=== PATIENT | female | born 1975 | race Caucasian/White ===

== ENCOUNTER 2020-12-05 20:57 | Emergency (ER) | payer OTHER, MEDICAID, SELFPAY ==
[2020-12-05] VITALS (8 sets, daily range): BP systolic 105–165; BP diastolic 66–96; PULSE 83–113; RESP 12–25; TEMP 37.2; O2SAT 95–100
[2020-12-05] MEDS: EPINEPHrine HCL INJ 1 MG/ML AMPUL (21:18)
[2020-12-05] MEDS: FAMOTIDINE 20 MG/2 ML VIAL IV PUSH (21:31)
[2020-12-05] MEDS: methylPREDNISolone SOD SUCC 125 MG VIAL IV PUSH (21:31)
[2020-12-05] MEDS: ALBUTEROL SULFATE NEB 2.5 MG/0.5 ML INH INHALATION (21:32)
[2020-12-05] MEDS: diphenhydrAMINE HCl INJ 50 MG/ML VIAL IV PUSH (21:34)
--- NOTE | 2020-12-05 22:18 | ED.GENADULT ---
HPI - General Adult General Chief complaint: Allergic Reaction Stated complaint: SOB/N/V Time Seen by Provider: 12/05/20 21:11 History of Present Illness HPI narrative: Patient is a 45-year-old female presents the emergency department with chief complaint of possible allergic reaction. The patient states that she ate some bread and also had some CBD Gummies today and started feeling short of breath and had some wheezing. The patient reports that she think she is having allergic reaction but also states she feels rather anxious with this to. Patient states that she has been squeezing some patient denies fever denies chills. Patient reports that she is had no prior history of allergic reactions. Related Data Allergies Allergy/AdvReac Type Severity Reaction Status Date / Time codeine AdvReac VOMITING Verified 05/26/11 12:02 Review of Systems Review of Systems: A 10 system review of systems was completed on the patient and is negative except for what is stated in the HPI. Nursing and ancillary documentation was reviewed. Exam Narrative: GENERAL: Well-appearing, well-nourished, and in no acute distress. HEAD: Normocephalic, atraumatic. EYES: PERRLA and EOMI. ENT: Nares clear, no rhinorrhea or epistaxis. Mucous membranes moist. NECK: Supple. CHEST: Scattered wheezes bilaterally to auscultation. No respiratory distress. HEART: Regular rate and rhythm. No murmur heard. Normal peripheral pulses. ABDOMEN: Soft, nontender, nondistended, normal active bowel sounds. EXTREMITIES: Normal range of motion. No edema. SKIN: Warm, dry, no rash. NEURO: No focal deficits. Alert and oriented x3. PSYCH: Normal mood and affect. Course Vital Signs Vital signs: Vital Signs Temperature 37.2 C 12/05/20 21:12 Pulse Rate 113 H 12/05/20 21:12 Respiratory Rate 20 12/05/20 21:12 Blood Pressure 149/89 H 12/05/20 21:12 Pulse Oximetry 100 12/05/20 21:12 Temperature 37.2 C 12/05/20 21:12 Pulse Rate 85 12/05/20 23:30 Respiratory Rate 14 12/05/20 23:30 Blood Pressure 105/74 12/05/20 23:30 Pulse Oximetry 95 12/05/20 23:30 Medical Decision Making Vital Signs Vital Signs: Vital Signs Temperature 37.2 C 12/05/20 21:12 Pulse Rate 113 H 12/05/20 21:12 Respiratory Rate 20 12/05/20 21:12 Blood Pressure 149/89 H 12/05/20 21:12 Pulse Oximetry 100 12/05/20 21:12 Temperature 37.2 C 12/05/20 21:12 Pulse Rate 85 12/05/20 23:30 Respiratory Rate 14 12/05/20 23:30 Blood Pressure 105/74 12/05/20 23:30 Pulse Oximetry 95 12/05/20 23:30 Discharge Plan Discharge Clinical Impression: Allergic reaction Qualifiers: Encounter type: initial encounter Qualified Code(s): T78.40XA - Allergy, unspecified, initial encounter Patient Disposition: Home, Self-Care Condition: Stable Instructions: Antibiotic Form, General Allergic Reaction (ED) Prescriptions: New methylprednisolone [Medrol (Tavon)] 4 mg tablets,dose pack See Rx Instructions .ROUTE .COMPLEX Qty: 21 RF: 0 Follow-up/Referrals: PHYSICIAN NOT ON STAFF,NONSTAFF [Primary Care Provider] - Time of Disposition: 00:43
[2020-12-05] MEDS: LORazepam INJ (*CRX) 2 MG/ML VIAL 0.5 MG IV PUSH (22:19)
--- NOTE | 2020-12-05 23:27 | PC.NURSE ---
Attempt to update (Roland Mckeon [phone]) unsuccessful at this time.
[2020-12-06 01:38] VITALS: BP 125/75; PULSE 78; RESP 16; O2SAT 96
== END 2020-12-06 01:40 | disposition home or self-care (01) ==
PROVIDERS: Emergency Provider Emergency Medicine
DX: T78.40XA Allergy, unspecified, initial encounter (principal)
CPT/HCPCS: 94640; 96372; 96374; 96375; 99284; J0171; J1200; J2060; J2930

== ENCOUNTER 2021-10-21 16:59 | Emergency (ER) | payer MEDICAID, SELFPAY ==
--- NOTE | 2021-10-21 17:15 | ED.URI ---
HPI - URI/Sore Throat General Chief Complaint: Upper Respiratory Infection Stated Complaint: sorethroat/lt ear pain Time Seen by Provider: 10/21/21 17:15 Source: patient Mode of arrival: ambulatory Limitations: no limitations History of Present Illness HPI Narrative: Ms. Asif is a 46-year-old female patient presenting to the clinic today with complaints of sore throat and left ear pain. She reports it feels like there is some thing inside the left throat. She reports is painful to swallow. Symptoms have been ongoing for 2 to 3 days. She has taken 2 at home COVID test and they were negative. Also reports nasal congestion and sinus drainage MD elicited complaint: sore throat and nasal congestion Related Data Home Medications Medication Instructions Recorded Confirmed ALEXANDRA-COLACE 10/21/21 bupropion HCl 150 mg tablet,12 hr 150 mg PO DAILY 10/21/21 10/21/21 sustained-release omeprazole 10/21/21 sertraline 100 mg tablet 100 mg DAILY 10/21/21 10/21/21 Allergies Allergy/AdvReac Type Severity Reaction Status Date / Time dextromethorphan Allergy Swelling Verified 10/21/21 17:41 [From Mucinex DM] of Lip/Tongue/Throat guaifenesin [From Mucinex DM] Allergy Swelling Verified 10/21/21 17:41 of Lip/Tongue/Throat codeine AdvReac VOMITING Verified 05/26/11 12:02 Review of Systems Review of Systems: Pertinent positives per HPI. Patient denies any fever, chills, rash, headache, visual changes, dizziness, cough, shortness of breath, chest pain, palpitations, nausea, vomiting, diarrhea, constipation, abdominal pain, or any urinary issues. PMFSH Comments At the time of my signature, I reviewed and agree with the nursing past medical, surgical, social, and family history. There is no relevant family history pertinent to the patient complaint. Exam Narrative: General: Well-developed, well nourished, in no apparent distress Head: Normocephalic, atraumatic Eyes: Pupils equally round and reactive to light bilaterally, EOM intact, sclera and conjunctive clear, no discharge, lids normal Ears: TMs intact, mild bulging, and dull, canals clear,no drainage, grossly hearing normal. Nose: Nares patent, clear nasal discharge, no inflammation, no sinus tenderness. Mouth: Oral pharynx without lesions or masses, good dentition, MMM. Oropharynx red, postnasal drip Neck: Supple, trachea midline, no enlargement of anterior or posterior cervical nodes, no thyroid masses or goiter palpable. Cardio: Regular rate and rhythm, s1 and s2 normal, no murmur appreciated. Resp: Clear to auscultation bilaterally, no rhonchi, rales, wheezing or rubs Course Course Emergency Course: Portions of this record may have been created with voice recognition software. Level of Care: Express Care Visit Vital Signs Vital signs: Vital Signs Temperature 36.3 C L 10/21/21 17:21 Pulse Rate 96 10/21/21 17:21 Respiratory Rate 18 10/21/21 17:21 Blood Pressure 123/83 10/21/21 17:21 Pulse Oximetry 99 10/21/21 17:21 Oxygen Delivery Room Air 10/21/21 17:21 Temperature 36.3 C L 10/21/21 17:21 Pulse Rate 96 10/21/21 17:21 Respiratory Rate 18 10/21/21 17:21 Blood Pressure 123/83 10/21/21 17:21 Pulse Oximetry 99 10/21/21 17:21 Oxygen Delivery Room Air 10/21/21 17:21 Vital signs reviewed MDM - URI/Sore Throat MDM Narrative Medical decision making narrative: At the time of visit patient is resting comfortably on exam table. Strep screen was obtained and was negative in clinic. I suspect the patient has eustachian tube dysfunction with serous otitis media. She also has viral pharyngitis. Supportive measures were discussed with the patient she voiced understanding of discharge instructions and agrees to treatment plan. Prescription was sent for prednisone to her pharmacy Differential Diagnosis Differential diagnosis: Likely upper respiratory infection, otitis media, sinusitis, viral infection, bronchi
[2021-10-21 17:21] VITALS: BP 123/83; PULSE 96; RESP 18; TEMP 36.3; O2SAT 99
== END 2021-10-21 18:26 | disposition home or self-care (01) ==
PROVIDERS: Emergency Provider Nurse Practitioner Family
DX: H65.02 Acute serous otitis media, left ear (principal); J02.9 Acute pharyngitis, unspecified; H69.93 Unspecified Eustachian tube disorder, bilateral; K21.9 Gastro-esophageal reflux disease without esophagitis; F41.9 Anxiety disorder, unspecified; F32.A Depression, unspecified; F17.200 Nicotine dependence, unspecified, uncomplicated
CPT/HCPCS: 87081; 87880; 99213; G0463

== ENCOUNTER 2022-01-06 14:32 | Emergency (ER) | payer OTHER, SELFPAY ==
--- NOTE | 2022-01-06 14:36 | ED.EAR ---
HPI - Ear Problem General Stated complaint: insect in lt ear Time Seen by Provider: 01/06/22 14:36 Source: patient Mode of arrival: ambulatory Limitations: no limitations History of Present Illness HPI Narrative: Ms. Mckeon is a 46-year-old female patient presenting to clinic today with complaints of a possible insect in the left ear. She reports that insect got in her ear this morning. It may have been as stink bug. She used water and peroxide to flush her ear Related Data Home Medications Medication Instructions Recorded Confirmed bupropion HCl 150 mg tablet,12 hr 150 mg PO DAILY 10/21/21 10/21/21 sustained-release sertraline 100 mg tablet 100 mg DAILY 10/21/21 10/21/21 Allergies Allergy/AdvReac Type Severity Reaction Status Date / Time dextromethorphan Allergy Severe Swelling Verified 01/06/22 14:46 [From Mucinex DM] of Lip/Tongue/Throat guaifenesin [From Mucinex DM] Allergy Severe Swelling Verified 01/06/22 14:46 of Lip/Tongue/Throat codeine AdvReac Intermediate VOMITING Verified 01/06/22 14:46 Review of Systems Review of Systems: Pertinent positives per HPI. Patient denies any fever, chills, rash, headache, visual changes, dizziness, cough, runny nose, sore throat, shortness of breath, chest pain, palpitations, nausea, vomiting, diarrhea, constipation, abdominal pain, or any urinary issues. PMFSH Comments At the time of my signature, I reviewed and agree with the nursing past medical, surgical, social, and family history. There is no relevant family history pertinent to the patient complaint. Exam Narrative: General: Well-developed, well nourished, in no apparent distress Head: Normocephalic, atraumatic Eyes: Pupils equally round and reactive to light bilaterally, EOM intact, sclera and conjunctive clear, no discharge, lids normal Ears: TMs intact and clear, ear canals clear, no drainage, grossly hearing normal. Nose: Nares patent, no discharge, no inflammation, no sinus tenderness. Mouth: Oropharynx without lesions or masses, good dentition, MMM. Neck: Supple, trachea midline, no enlargement of anterior or posterior cervical nodes, no thyroid masses or goiter palpable. Cardio: Regular rate and rhythm, s1 and s2 normal, no murmur appreciated. Resp: Clear to auscultation bilaterally anteriorly and posteriorly, no rhonchi, rales, wheezing or rubs Course Course Emergency Course: Portions of this record may have been created with voice recognition software. Level of Care: Express Care Visit Vital Signs Vital signs: Vital signs reviewed Medical Decision Making MDM Narrative Medical decision making narrative: At the time of visit patient is resting comfortably on exam table. No insect was found upon a ear exam. I suspect that the patient may have flush this out earlier today. No sign of ear infection,ear canal infection, or trauma. Supportive measures were discussed with the patient and she voiced understanding of discharge instructions Differential Diagnosis Differential Diagnosis: Possible foreign body in the left ear canal, otalgia, left otitis media, eustachian tube dysfunction, left otitis externa Discharge Plan Discharge Clinical Impression: Acute otalgia, No foreign body found on evaluation Patient Disposition: Home, Self-Care Condition: Stable Instructions: Antibiotic Form, Earache (ED) Additional Instructions: No insect was found on ear exam today. May take Tylenol/Motrin as needed for pain Follow-up with your PCP as needed Prescriptions: No Action bupropion HCl 150 mg tablet sustained-release 12 hr 150 mg PO DAILY sertraline 100 mg tablet 100 mg DAILY ALEXANDRA-COLACE omeprazole prednisone 20 mg tablet 40 mg PO DAILY 5 Days Qty: 10 0RF Follow-up/Referrals: UNKNOWN,DOCTOR [Primary Care Provider] - Time of Disposition: 14:47 Quality NIHSS Nursing Documentation ED NIHSS nursing doc
[2022-01-06 14:43] VITALS: BP 139/93; PULSE 74; RESP 18; TEMP 36.1; O2SAT 99
== END 2022-01-06 14:50 | disposition home or self-care (01) ==
PROVIDERS: Emergency Provider Nurse Practitioner Family
DX: H92.02 Otalgia, left ear (principal); K21.9 Gastro-esophageal reflux disease without esophagitis; N80.9 Endometriosis, unspecified; F41.9 Anxiety disorder, unspecified; F32.A Depression, unspecified; F17.290 Nicotine dependence, other tobacco product, uncomplicated
CPT/HCPCS: 99211; G0463

== ENCOUNTER 2022-01-28 17:42 | Emergency (ER) | payer OTHER, SELFPAY ==
--- NOTE | ~2022-01-28 | XR_ITS ---
XR chest 2V DATE: 01/28/2022 18:20 INDICATION: Cough, chest pain for one day. Tobacco days ago smoker TECHNIQUE: 2 views COMPARISON: None FINDINGS: Normal heart size. No hilar or mediastinal enlargement. No pulmonary infiltrate or consolid ation, pleural effusion or pulmonary vascular congestion or pneumothorax. Included skeletal structures are unremarkable. IMPRESSION: No active cardiopulmonary disease Reviewed, dictated and finalized at location B. K LAYING MACHINE OPERATOR
--- NOTE | 2022-01-28 17:58 | ECG_ITS ---
Measurements Intervals [place] Rate: 82 P: 68 CT: 161 QRS: 68 QRSD: 94 T: 55 QT: 376 QTc: 441 Interpretive Statements SINUS RHYTHM NO PREVIOUS ECG AVAILABLE FOR COMPARISON Electronically Signed On 01-29-2022 14:50:10 GROUP FITNESS MANAGER by Gelacio Romero M.D.
[2022-01-28 18:01] VITALS: BP 141/88; PULSE 90; RESP 18; TEMP 36.6; O2SAT 98
--- NOTE | 2022-01-28 18:05 | ED.CHESTPAIN ---
HPI - Chest Pain General Chief Complaint: Chest Pain Stated Complaint: chest pain Time Seen by Provider: 01/28/22 18:05 Source: patient Mode of arrival: ambulatory Limitations: no limitations History of Present Illness HPI narrative: 46-year-old female presents with multiple complaints. Reports that she has been suffering from abdominal pain since her colonoscopy. Has been seen in the ER for this problem and has been told that she has inflammation. Has a follow-up appoint with her primary care physician tomorrow regarding abdominal pain. She also reports that she has had pain to bilateral ears, intermittent dizziness. also complaining of cough, congestion, body aches, fever, fatigue since yesterday. States that her kids have COVID and her has influenza. She did a COVID test prior to arrival that was negative. She denies shortness of breath. Today while at work she was experiencing Pain to bilateral shoulders radiating into chest when lifting boxes up onto a shelf. She is unsure if this is related to cough symptoms or her heart. Also reports history of anxiety. All systems reviewed and negative except as noted above. Related Data Home Medications Medication Instructions Recorded Confirmed bupropion HCl 150 mg tablet,12 hr 150 mg PO BID 10/21/21 01/28/22 sustained-release sertraline 100 mg tablet 100 mg DAILY 10/21/21 01/28/22 Allergies Allergy/AdvReac Type Severity Reaction Status Date / Time dextromethorphan Allergy Severe Swelling Verified 01/28/22 17:53 [From Mucinex DM] of Lip/Tongue/Throat guaifenesin [From Mucinex DM] Allergy Severe Swelling Verified 01/28/22 17:53 of Lip/Tongue/Throat codeine AdvReac Intermediate VOMITING Verified 01/28/22 17:53 Review of Systems Review of Systems: CONSTITUTIONAL: report fever, chills, or sweats. EYES: Denies visual changes, redness, or discharge. ENT: reports rhinorrhea, congestion, sore throat, and both ears CARDIOVASCULAR: reports chest pain. Denies palpitations, or edema. RESPIRATORY: reports cough. Deniesdyspnea. GASTROINTESTINAL: Denies abdominal pain, nausea, vomiting, or diarrhea. GENITOURINARY: Denies dysuria or hematuria. SKIN: Denies rash or itching. MUSCULOSKELETAL: Denies back pain, joint pain, or myalgia. NEUROLOGIC: Denies headache, numbness, or weakness. PSYCHIATRIC: Denies anxiety or depression. All other systems reviewed are negative, except as documented in HPI. PMFSH Comments At time of signature, agree with nursing past medical, surgical, social and family history. There is no relevant family history pertinent to the presenting complaint. Exam Narrative: GENERAL: This is a well-nourished, well-developed patient, in no apparent distress. HEAD: normocephalic, atraumatic. EYES: PERRL. Sclera clear/white. Vision is grossly intact. EARS: External ears normal, auditory canals clear and without drainage, fluid and erythema to both TMs. NOSE: External nose normal with no obvious nasal discharge, nares without redness, no rhinorrhea. THROAT: Mucous membranes moist, posterior pharynx clear. NECK: Neck supple, non-tender without lymphadenopathy, masses or thyromegaly. CARDIOVASCULAR: Regular rate and rhythm without murmurs, gallops, or rubs. RESPIRATORY: Coarse lung sounds to upper lung medina. SKIN: warm, Dry, intact with no suspicious lesions or rash, good texture and turgor. NEURO: awake, alert, and oriented to person, place and time. There were no obvious focal neurologic abnormalities. EXTREMITIES: No joint tenderness, effusion, or edema noted. Course Course Level of Care: Express Care Visit Vital Signs Vital signs: Vital Signs Temperature 36.6 C 01/28/22 18:01 Pulse Rate 90 01/28/22 18:01 Respiratory Rate 18 01/28/22 18:01 Blood Pressure 141/88 H 01/28/22 18:01 Pulse Oximetry 98 01/28/22 18:01 Oxygen Delivery Room Air 01/28/22 18:01 Temperature 36.6 C 01/28/22 18:01 P
== END 2022-01-28 18:50 | disposition home or self-care (01) ==
PROVIDERS: Emergency Provider Nurse Practitioner Family
DX: J06.9 Acute upper respiratory infection, unspecified (principal); H65.03 Acute serous otitis media, bilateral; Z20.822 Contact with and (suspected) exposure to COVID-19
CPT/HCPCS: 71046; 87426; 93005; 99213; C9803; G0463

== ENCOUNTER 2023-02-07 15:11 | Emergency (ER) | payer SELFPAY ==
--- NOTE | ~2023-02-07 | XR_ITS ---
EXAMINATION: XR chest 2V Exam Date/Time: 02/07/2023 15:22 HEALTH AND WELLNESS ADVISOR HISTORY: cough fever Comparison: 01/28/2022. RESULT: Lines, tubes, and devices: None. Lungs and pleura: Mild diffuse reticulonodular opacities and cuffing. Cardiomediastinal silhouette: Stable. Other: No acute osseous or upper abdominal finding. IMPRESSION: Pulmonary opacities may represent bronchiolitis, as can be seen with atypical infection, asthma, aspi ration, and small airways disease. Reviewed, dictated and finalized at location K. TH AND WELLNESS ADVISOR IMPRESSION: Pulmonary opacities may represent bronchiolitis, as can be seen with atypical i nfection, asthma, aspiration, and small airways disease.
--- NOTE | 2023-02-07 15:13 | ED.URI ---
HPI - URI/Sore Throat General Chief Complaint: Upper Respiratory Infection Stated Complaint: COVID+ Time Seen by Provider: 02/07/23 15:12 Source: patient Mode of arrival: ambulatory Limitations: no limitations History of Present Illness HPI Narrative: Alex is a 47-year-old female patient presenting to the clinic today with complaints of cough, nasal congestion, body aches, chills, and shortness of breath. She reports she tested positive at home for COVID. Symptoms started yesterday. MD elicited complaint: cough, rhinorrhea, nasal congestion and other (Body aches, chills) Related Data Home Medications Medication Instructions Recorded Confirmed bupropion HCl 150 mg tablet,12 hr 150 mg PO BID 10/21/21 01/28/22 sustained-release sertraline 100 mg tablet 100 mg DAILY 10/21/21 01/28/22 Allergies Allergy/AdvReac Type Severity Reaction Status Date / Time dextromethorphan Allergy Severe Swelling Verified 01/28/22 17:53 [From Mucinex DM] of Lip/Tongue/Throat guaifenesin [From Mucinex DM] Allergy Severe Swelling Verified 01/28/22 17:53 of Lip/Tongue/Throat codeine AdvReac Intermediate VOMITING Verified 01/28/22 17:53 Review of Systems Review of Systems: Pertinent positives per HPI. Patient denies any fever,rash, headache, visual changes, dizziness,chest pain, palpitations, nausea, vomiting, diarrhea, constipation, abdominal pain, or any urinary issues. PMFSH Comments At the time of my signature, I reviewed and agree with the nursing past medical, surgical, social, and family history. There is no relevant family history pertinent to the patient complaint. Exam Narrative: General: Well-developed, well nourished, ill-appearing Head: Normocephalic, atraumatic Eyes: Pupils equally round and reactive to light bilaterally, EOM intact, sclera and conjunctive clear, no discharge, lids normal Ears: TMs intact and congested, ear canals clear, no drainage, grossly hearing normal. Nose: Nares patent, clear nasal discharge, no inflammation, no sinus tenderness. Mouth: Oral pharynx without lesions or masses, good dentition, MMM. Neck: Supple, trachea midline, no enlargement of anterior or posterior cervical nodes, no thyroid masses or goiter palpable. Cardio: Regular rate and rhythm, s1 and s2 normal, no murmur appreciated. Resp: Inspiratory rhonchi with expiratory wheezing, no rales or rubs, able to speak in full sentences, SpO2 97% on room air Course Course Emergency Course: Portions of this record may have been created with voice recognition software. Level of Care: Express Care Visit Vital Signs Vital signs: Vital signs reviewed MDM - URI/Sore Throat MDM Narrative Medical decision making narrative: At the time of visit patient is resting comfortably on the exam table. Patient appears to be nontoxic but is ill appearing. COVID test was positive. Influenza testing was negative. Chest x-ray shows bronchiolitis. No sign of pneumonia. Paxlovid and albuterol was sent to the pharmacy. Supportive measures were discussed with the patient and they voiced understanding discharge instructions and agrees to treatment plan. Return precautions reviewed Differential Diagnosis Differential diagnosis: Likely upper respiratory infection, otitis media, sinusitis, viral infection, bronchitis, influenza, pharyngitis and other (COVID) Imaging Data Radiologist's impression: ITS Impressions Chest X-Ray 02/07/23 15:32 IMPRESSION: Pulmonary opacities may represent bronchiolitis, as can be seen with atypical infection, asthma, aspiration, and small airways disease. Discharge Plan Discharge Clinical Impression: COVID-19, Bronchiolitis Patient Disposition: Home, Self-Care Condition: Stable Instructions: Antibiotic Form, Bronchiolitis (ED), COVID-19 (Coronavirus Disease 2019) (ED), How to Recover from COVID-19 at Home (ED) Additional Instructions: Covid test is positive in th
[2023-02-07 15:23] VITALS: BP 129/85; PULSE 104; RESP 20; TEMP 36.8; O2SAT 97
== END 2023-02-07 15:46 | disposition home or self-care (01) ==
PROVIDERS: Emergency Provider Nurse Practitioner Family
DX: U07.1 COVID-19 (principal); J21.9 Acute bronchiolitis, unspecified; K21.9 Gastro-esophageal reflux disease without esophagitis; F41.9 Anxiety disorder, unspecified; F32.A Depression, unspecified
CPT/HCPCS: 71046; 87426; 87804; 99213; C9803; G0463

== ENCOUNTER 2024-06-03 08:04 | Emergency (ER) | payer OTHER, SELFPAY ==
--- OUTSIDE RECORDS SUMMARY | 2024-06-03 08:13 | XMS_ITS | Encounter Summary ---
Author Organization [facility] Address [address] [place] [id number] Care Team Providers Care Ship Purser Name Role Phone Kemal Siegel MD Primary Care Provider + Encounter Details Date Type Department Care Team (Late st Contact Info) Description 08/11/2023 [employer] Message [facility] [employer] [facility] [employer] [address] [address] [place], [facility] Provider Proxy request for Brenna Social History Tobacco Use Types Packs/Day Years Used Date Smoking Tobacco: Every Day Cigarettes 1.5 37.3 Started: 1987 Smokeless Tobacco: Never Comments:current smoker Alcohol Use Standard Drinks/Week Comments Not Currently 0 (1 standard drink = 0.6 oz pur e alcohol) AUDIT-C Answer Date Recorded Q1: How often do you have a drink containing alcohol? 4 or more times a week 10/27/2019 Average Number of Drinks Not on file 020 Frequency of Binge Drinking Not on file 04/2019 PHQ-2 Answer Date Recorded Patient Health Questionnaire-2 Score 0 08/04/2023 Comments No Sex and Gender Information Value Date Recorded Sex Assigned at Female 12/14/2020 11:54 AM CDT Legal Sex Female 7:08 PM CDT Gender Identity Female 12/14/2020 11:54 AM CDT Sexual Orientation Straight 12/14/2020 11 :54 AM CDT documented as of this encounter Plan of Treatment Not on file documented as of this encounter Visit Diagnoses Not on filedocumented in this encounter Additional Health Concerns Infection Onset Date Last Indicated Resolved Time COVID-19 Rule Out 03/25/2024 03/25/2024 03/25/2024 10:55 AM MANAGER WELDING Assessment Noted Time PHQ-9 Depression Total Score: 14 023 12:41 PM MANAGER WELDING documented as of this encounter Care Teams Ship Purser Relationship Specialty Start Date End Date Kemal Siegel MD [id number] [id number] PCP - General FAMILY PRACTICE 04/28/22 documented as of this encounter
--- OUTSIDE RECORDS SUMMARY | 2024-06-03 08:13 | XMS_ITS | Encounter Summary ---
Author Organization [facility] Address [address] [place] [id number] Care Team Providers Care Custom Feed Mill Operator Name Role Phone Kemal Siegel MD Primary Care Provider + Encounter Details Date Type Department Care Team (Late st Contact Info) Description 01/18/2024 [employer] Message [address] [phone] [facility] Provider results Social History Tobacco Use Types Packs/Day Years [...] Date Recorded Patient Health Questionnaire-2 Score 0 12/16/2023 Comments No Sex and Gender Information Value [...] Rule Out 03/25/2024 03/25/2024 03/25/2024 10:55 AM METAL DRESSER Assessment Noted Time PHQ-9 Depression Total Score: 14 023 12:41 PM METAL DRESSER documented as of this encounter Care Teams Custom Feed Mill Operator Relationship Specialty Start Date End Date Kemal Siegel MD [address] [facility] [[email or web address] [address] [place] [address] PCP - General FAMILY PRACTICE 04/28/22 documented as of this encounter
--- OUTSIDE RECORDS SUMMARY | 2024-06-03 08:13 | XMS_ITS | Continuity of Care Document ---
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 Discharge Disposition: Home or Self Care (Routine Discharge) 10/26/2020 Travel 10/26/2020 11:00 AM CDT Laboratory Only [facility] Family & Internal [facility] [address] [place] [address] 10/19/2020 Travel 10/19/2020 1:00 PM CDT Office Visit [facility] Family Internal [address] [phone] Monie Olguin, CLERICAL RECEPTIONIST Medication Request (Patient is needing medication refills); Weight Check (Patient is losing weight, and trying to put weight.); Foot Pain (Bilater feet pain) 06/21/2020 Travel 12/19/2019 Patient Self-Triage [facility] DEPARTMENT [address] [place] [address] Sylvie [facility] Provider 12/19/2019 2:05 PM CDT Laboratory Only [address], [address] [place] [phone] 12/19/2019 Patient Self-Triage [facility] DEPARTMENT [address] [place] [address] Sylvie, [facility] Provider 12/13/2019 Travel 10/27/2019 Travel 10/27/2019 1:20 PM CDT Office Visit [facility] Family Internal [address] [phone] Steve Wood MD Physical (New patient; establish care. Med refills. Discuss HTN - recent ER visit. Discuss labs from ER. EKG was done) 10/27/2019 Telephone [facility] [address] [address] Ruy Nuno NP Other 10/21/2019 10:07 PM CDT - 10/22/2019 12:31 AM CDT Emergency [facility] Emergency Room [address] [place] [phone] Boo White MD Hypertension Discharge Disposition: Home or Self Care (Routine Discharge) 10/21/2019 Travel 05/19/2019 11:31 PM CDT - 05/20/2019 3:18 AM CDT Emergency [facility] Emergency Room [address] [place] [address] Lotus Helton MD Discharge Disposition: Home or Self Care (Routine Discharge) 05/19/2019 Travel 12/29/2017 Scan [facility] Md Generic MD Fernando 12/24/2017 Abstract [facility] Kimani Choi MD 12/09/2017 Abstract [facility] Md Generic MD Fernando 12/04/2017 Abstract [facility] [address] [place] [address] Kimani Choi MD 12/04/2017 Abstract [facility] Kimani Choi MD 12/04/2017 Abstract [facility] General Surgery - [place] [address] [facility], [address] [place] [address] Kimani Choi MD 12/01/2017 Abstract [facility] Md Generic MD Fernando 11/26/2017 Abstract [facility] General Surgery - [place] [address] [facility], [address] [place] [address] Kimani Choi MD 11/10/2017 Abstract [facility] Johana Dale NP 11/09/2017 Abstract [facility] Johana Dale, EVA 09/04/2017 Abstract [facility] Family & Internal Medicine [facility] [address] [place] [address] Ruy Nuno NP 08/31/2017 Abstract [facility] Family Medicine - [place] [address] [facility], [address] [place] [address] Daylin Rodriguez MD 08/28/2017 Abstract [facility] [address] [place] [address] Daylin Rodriguez MD 08/28/2017 Abstract [facility] Daylin Rodriguez MD 08/28/2017 Abstract [facility] Daylin Rodriguez MD 08/28/2017 Abstract [facility] Daylin Rodriguez MD 08/12/2017 Abstract [facility] 08/11/2017 Abstract [facility] [address] [place] [address] Ruy Nuno, EVA 08/11/2017 Abstract [facility] Family & Internal Medicine [facility] [address] [place] [address] Ruy Nuno, EVA 08/09/[address] [facility] [address] [place] [address] Tylor Dias MD 08/09/2017 Abstract [facility] Cinthia Schilling MD 07/23/2017 Abstract [facility] Primary and Specialty Care - [address] [phone] Daylin Rodriguez MD 07/10/2017 Abstract [facility] 07/08/2017 Abstract [facility] 07/07/2017 Abstract [facility] [address] [place] [address] Ruy Nuno, EVA 07/07/2017 Abstract [facility] [address] [place] [address] Ruy Nuno, ROLL CONTOUR GRINDER 07/07/2017 Abstract [facility] Medical [facility] Ruy Nuno, EVA 07/07/2017 Abstract [facility] Family & Internal Medicine [facility] [address] [place] [phone] Ruy Nuno, EVA 07/01/2017 Abstract [facility] [address] [place] [address] Cj Mosqueda MD 07/01/2017 Orders Only [facility], [address] [address] Ruy Nuno NP 07/01/2017 Scan [facility] [place] [address] [place] [address] Scanned, Documents 06/23/2017 Scan [facility], [place] [address] [place] [address] Scanned, Documents 06/23/2017 Telephone [facility], [facility] [address] [place] [address] Rosibel Sharma MD Other (ECHO) 06/18/2017 Abstract [facility] 06/17/2017 Abstract [facility] [address] [place] [address] Ruy Nuno NP 06/17/2017 Abstract [facility] [address] [place] [address] Ruy Nuno, EVA 06/17/2017 Abstract [facility] Medical [facility] Family & Internal Medicine [facility] [address] [place] [address] Ruy Nuno, EVA 08/25/2016 Abstract [facility] 08/23/2016 Abstract [facility] [address] [place] [address] Ruy Nuno, EVA 07/15/2016 Abstract [facility] 07/13/2016 Abstract [facility] 07/08/2016 Abstract [facility] Cinthia Schilling MD 06/27/2016 Abstract [facility] [address] [place] [address] Ruy Nuno, EVA 06/27/2016 Abstract [facility] 06/18/2016 Abstract [facility] Family & Internal Medicine [facility] [address] [place] [address] Ruy Nuno NP 05/12/2016 Abstract [facility] [address] [place] [address] Monie Love MD 05/05/2016 Abstract [facility] [address] [facility] [place] [address] Monie Love MD 04/30/2016 Abstract [facility] 04/20/2015 Abstract [facility] [address] [place] [address] Cinthia Schilling MD 04/20/2015 Abstract [facility] Family & Internal Medicine [place] [address] [place] [address] Kamila Gilbert, KATJA 02/22/2015 Abstract [facility] Kamila Gilbert APNP 12/04/2014 Abstract [facility] 11/29/2014 Abstract [facility] [address] [place] [address] Ruy Nuno NP 11/29/2014 Abstract [facility] Ruy Nuno NP 11/28/2014 Abstract [facility] Family & Internal Medicine [address] [address] Lorenza Reyes MD 07/13/2014 Abstract [facility] [address] [address] Lorenza Reyes MD 04/07/2014 Abstract [facility] [address] [address] Lorenza Reyes MD 02/27/2014 Abstract [facility] Kamila Gilbert, APNP 02/25/2014 Abstract [facility] Kamila Gilbert, APEVA 02/24/2014 Abstract [facility] Women [facility] Infants [address] [place] [address] Kalyn Mayen MD 02/24/2014 Abstract [facility] Kamila Gilbert, APNP 02/22/2014 Abstract [facility] PreAdmission [address] [place] [address] Kalyn Mayen MD 02/22/2014 Abstract [facility] Ofelia Kamila ROSALVAEVA 11/05/2012 Abstract [facility] [address] [place] [address] Kalyn Mayen MD 10/29/2012 Abstract [facility] [address] [place] [address] Kalyn Mayen MD 10/18/2012 Abstract [facility] General Surgery - [place] [address] [facility], [address] [place] [phone] Analisa Demarco MD 10/11/2012 Abstract [facility] [address] [place] [address] Analisa Demarco MD 10/11/2012 Abstract [facility] Analisa Demarco MD 10/08/2012 Abstract [facility] 10/06/2012 Abstract [facility] [address] [place] [address] Cinthia Schilling MD 10/06/2012 Abstract [facility] General Surgery - [place] [address] [facility], [address] [place] [address] Analisa Demarco MD 08/24/2012 Abstract [facility] Mckenzie Cano MD 06/03/2012 Abstract [facility] Medical [facility] Saad Yanez MD 02/11/2012 Abstract [facility] [address] [place] [address] Kalyn Mayen MD 01/19/2012 Abstract [facility] Fernando Schilling Generic ConversionMD 01/09/2012 Abstract [facility] [address] [place] [address] Kalyn Mayen MD 01/01/2012 Abstract [facility] [address] [place] [address] Kalyn Mayen MD 06/03/2011 Abstract [facility] Fernando Schilling, Cinthia King MD 05/26/2011 Abstract [facility] [address] [place] [address] Sacha Burks MD 02/10/2011 Abstract .[facility] Emergency Room [address] [place] [address] Camilo Houser MD 01/05/2010 Abstract .[facility] Emergency Room [address] [place] [address] Damian Huizar MD 01/01/2010 Abstract [facility] Women & Infants [address] [place] [address] Kalyn Mayen MD 12/31/2009 Abstract [facility] Labor & Delivery Outpatient [address] [place] [address] Bipin Wang MD 12/21/2009 Abstract [facility] Diagnostic Imaging [address] [place] [address] Bipin Wang MD 12/13/2009 Abstract [facility] [address] [place] [address] Bipin Wang MD 12/11/2009 Abstract [facility] Emergency Room [address] [place] [address] Burak Friend Jr., MD 12/11/2009 Abstract [facility] Outpatient [address] [place] [address] Bipin Wang MD 10/19/2009 Abstract [facility] [address] [place] [address] Lakshmi Gill MD 10/17/2009 Abstract [facility] [address] [place] [address] Bipin Wang MD 09/25/2009 Abstract [facility] [address] [place] [address] Bipin Wang MD 08/07/2009 Abstract [facility] [address] [place] [address] Kalyn Mayen MD 06/20/2009 Abstract [facility] [address] [place] [address] Lakshmi Gill MD 06/19/2009 Abstract [facility] [address] [place] [address] Kalyn Mayen MD 01/23/2009 Abstract [facility] [address] [place] [address] Surendra Grider MD 01/11/2009 Abstract [facility] [address] [place] [address] Surendra Grider MD 01/08/2009 Abstract [facility] [address] [place] [address] Saad Yanez MD 11/28/2008 Abstract [facility] [address] [place] [address] Cande Luna MD 12/15/2007 Abstract [facility] [address] [place] [address] Surendra Grider MD 12/14/2007 Abstract [facility] [address] [place] [address] Surendra Grider MD 09/23/2007 Abstract [facility] [address] [place] [address] Michelle Rush MD 09/16/2007 Abstract [facility] Diagnostic Imaging [address] [place] [address] Michelle Rush MD 09/14/2007 Abstract [facility] [address] [place] [address] Michelle Rush MD 09/03/2007 Abstract [facility] [address] [place] [address] , Generic ConversionMD 09/02/2007 Abstract [facility] [address] [address] , Generic Conversion, 08/30/2007 Abstract [facility] Emergency Services [address] [address] Bam Sheriff MD 08/12/2007 Abstract [facility] Medical/Surgical [address] [address] Michelle Rush MD 08/09/2007 Abstract [facility] Diagnostic Imaging [address] [place] [address] Michelle Rush MD 07/16/2007 Abstract [facility] [address] [address] Michelle Rush MD 06/18/2007 Abstract [facility] [address] [place] [address] Nirmal Salazar MD 06/04/2007 Abstract [facility] [address] [place] [address] Nirmal Salazar MD 12/23/2006 Abstract [facility] [address] [place] [address] Cande Luna MD 12/10/2006 Abstract [facility] [address] [place] [address] Cande Luna MD 11/30/2006 Abstract [facility] [address] [place] [address] Cande Luna MD Allergies Active Allergy Reactions Criticality Noted Date Comments Codeine Nausea and Vomiting Medium 06/03/2012 T-Relief Cbd+13 Anaphylaxis High 12/14/2020 Tried one CBD Gummy Dextromethorphan-Guai fenesin Shortness of Breath High 07/26/2021 Medications aluminum chloride (DRYSOL) 20 % external solutionIndicatio ns:Hyperhidrosis of feet Apply to feet every night for 2 weeks then every other night for 1 week then prn 35 mL 5 2 Active omeprazole (PRILOSEC) 10 MG capsule Take 1 capsule (10 mg total) by mouth daily. Active multi vitamin/minerals (THERA-M ENHANCED) tablet Take 1 tablet by mouth daily. Active Pyridoxine HCl (VITAMIN B6 OR) Take by mouth daily. Active Cyanocobalamin (VITAMIN B-12 OR) Take by mouth daily. Active Fluticasone Furoate (ARNUITY ELLIPTA) 100 MCG/ACT AEROSOL POWDER, BREATH ACTIVATEDIndicati ons:SOB (shortness of breath) Inhale 1 puff into the lungs daily. 90 each 1 4 Active methocarbamol (ROBAXIN) 750 MG Tab Take 1 tablet (750 mg total) by mouth 3 (three) times daily. As needed 4 Active albuterol sulfate HFA 108 (90 Base) MCG/ACT inhalerIndication s:SOB (shortness of breath) INHALE 2 PUFFS BY MOUTH EVERY 6 HOURS NEEDED FOR WHEEZING 18 g 2 5 Active sertraline (ZOLOFT) 100 MG tabletIndications :Depression with anxiety Take 1.5 tablets (150 mg total) by mouth daily. 45 tablet 5 Active azithromycin (ZITHROMAX) 250 MG tabletIndications :COPD with acute exacerbation (CMS/HCC HHS/HCC) Take 2 tablets (500 mg total) today, then 1 tablet daily thereafter for 4 days (250 mg total) 6 tablet 5 Active buPROPion SR (WELLBUTRIN SR) 150 MG 12 hr tabletIndications :Depression with anxiety Take 1 tablet by mouth twice daily 180 tablet 5 Active lisinopril (PRINIVIL) 10 MG tabletIndications :Primary hypertension Take 1 tablet by mouth once daily 90 tablet 5 Active Active Problems Problem Noted Date Diagnosed Date Diarrhea, unspecified type 10/02/2023 Abdominal pain, unspecified abdominal location 0 10/02/2023 Chronic heartburn 10/02/2023 Status post lumbar surgery 04/27/2023 Tobacco abuse 05/09/2022 Assessment & Plan (05/09/2022 2:36 PM CDT): Encouraged tobacco cessation. Primary hypertension 05/09/2022 Assessment & Plan (05/09/2022 2:36 PM CDT): Continue lisinopril. Positive colorectal cancer screening using Colog uard test 12/26/2021 Overview (12/26/2021): Added automatically from request for surgery [id number] Heartburn 12/26/2021 Overview (12/26/2021): Added automatically from request for surgery [id number] Gastroesophageal reflux 12/26/2021 Overview (12/26/2021): Added automatically from request for surgery [id number] Cervical radiculopathy 11/12/2021 DDD (degenerative disc disease), cervical 2021 Precordial chest pain 12/28/2020 Assessment & Plan (05/09/2022 2:35 PM CDT): Continues to have chest pain symptoms. Encouraged use of Tylenol or ibuprofen. CTA coronary showed no evidence of coronary artery disease or coronary calcium. Chest pain is likely noncardiac. Assessment & Plan (03/29/2021 8:20 AM MANAGER OPERATIONS): CCTA with scoring completed 12/28/20 IMPRESSION? 1. Coronary calcium score is 0. 2. Ejection fraction is 53%. 3. CAD-RAD score is 0. 4. Normal coronaries. Assessment & Plan (12/28/2020 2:40 PM CDT): I recommended that she undergo CTA coronary angiogram to further evaluate her symptoms. Bilateral nephrolithiasis 02/08/2018 COPD (chronic obstructive pu lmonary disease) ([facility]) 02/08/2018 Depression with anxiety 02/08/2018 Palpitations 02/08/2018 Assessment & Plan (05/09/2022 2:35 PM CDT): Palpitations symptoms have improved. No pharmacologic therapy needed. Heart rate within normal limits. Assessment & Plan (03/29/2021 8:19 AM MANAGER OPERATIONS): She has had a Holter monitor that shows no evidence of arrhythmia Assessment & Plan (12/28/2020 2:41 PM CDT): She has had a Holter monitor that shows no evidence of arrhythmia. Her symptoms appear to be improving. At this time, pharmacologic therapy is not warranted. Hormone replacement therapy 02/08/2018 Hypocitraturia 02/08/2018 Hypokalemia 02/08/2018 Medullary sponge kidney 02/08/2018 Nicotine dependence 02/08/2018 Assessment & Plan (03/29/2021 8:20 AM MANAGER OPERATIONS): Encouraged cessation Assessment & Plan (12/28/2020 2:41 PM CDT): I recommended smoking cessation to her and she is planning on quitting. History of cervical cancer 02/08/2018 History of endometriosis 02/08/2018 Resolved Problems Problem Noted Date Diagnosed Date Resolved Date Anxiety 12/06/2020 11/12/2021 Acid reflux 02/08/2018 10/19/2020 Obesity 02/08/2018 12/06/2020 History of scarlet fever 02/08/2018 Immunizations Name Administration Dates Next Due Influenza (Generic) 02/25/2014 PFIZER COVID-19 (ORIGINAL FO RMULATION, PURPLE CAP) mRNA, LNP-S, PF, 30 MCG/0.3 ML DOSE 11/24/2020,10/30/2020 Pneumococcal (Pneumovax 23) 02/26/2014 Tdap (Adacel) 04/28/2022 Family History Medical History Relation Comments Breast Cancer Cousin COPD Father Cancer Father Lung Heart Disease Father Stents Hypertension Father systemic lupus erythematosus Father Cancer Maternal Grandfather Liver Dementia Maternal Grandmother COPD Mother Depression Mother Hypertension Mother Breast Cancer Other Cancer Paternal Grandfather Liver, lung Lung Cancer Paternal Grandmother Relation Status Comments Cousin Alive Father Maternal Grandfather Maternal Grandmother Mother Alive Other Alive Paternal Grandfather Paternal Grandmother Social History Smoking Status as of 06/03/2024 Tobacco Use Types Packs/Day Years Used Date Smoking Tobacco: Never Assessed AUDIT-C Answer Date Recorded Q1: How often do you have a drink containing alcohol? 4 or more times a week 10/27/2019 Average Number of Drinks Not on file 020 Frequency of Binge Drinking Not on file 04/2019 PHQ-2 Answer Date Recorded Patient Health Questionnaire-2 Score 0 12/16/2023 Sex and Gender Information Value Date Recorded Sex Assigned at Female 12/14/2020 11:54 AM CDT Legal Sex Female 7:08 PM CDT Gender Identity Female 12/14/2020 11:54 AM CDT Sexual Orientation Straight 12/14/2020 11 :54 AM CDT Last Filed Vital Signs Vital Sign Reading Time Taken Comments Blood Pressure 133/89 03/25/2024 10:20 AM MANAGER OPERATIONS Pulse 85 03/25/2024 10:20 AM MANAGER OPERATIONS Temperature 36.8 C (98.2 F) 03/25/2024 10:20 AM MANAGER OPERATIONS Respiratory Rate 18 03/25/2024 10:20 AM MANAGER OPERATIONS Oxygen Saturation 98% 03/25/2024 10:20 AM MANAGER OPERATIONS Inhaled Oxygen Concentration - - Weight 64.9 kg (143 lb 2 oz) 03/25/2024 10:20 AM MANAGER OPERATIONS Height 157.5 cm (5' 2 ) 03/25/2024 10:20 AM MANAGER OPERATIONS Body Mass Index 26.18 03/25/2024 10:20 AM MANAGER OPERATIONS Plan of Treatment Not on file Procedures Procedure Name Priority Date/Time Associated Diagnosis Comments STREP A RAPID Routine 03/25/2024 Bronchitis CORONAVIRUS (COVID-19) INFLUENZA A & B ANTIGEN IA PANEL Routine 03/25/2024 Bronchitis MG SCREENING W RAN KELLY DIGI Routine 01/15/2024 3:39 PM MANAGER OPERATIONS Encounter for screening mammogram for malignant neoplasm of breast XR CHEST PA+LAT Routine 12/16/2023 3:54 PM CDT Acute cough COLONOSCOPY WITH BIOPSY 11/03/19 12:25 PM CDT Diarrhea, unspecified type Abdominal pain, unspecified abdominal location Gastroesophageal reflux disease, unspecified whether esophagitis present Chronic heartburn UPPER GI ENDOSCOPY,BIOPSY 11/03/2023 12:25 PM CDT Diarrhea, unspecified type Abdominal pain, unspecified abdominal location Gastroesophageal reflux disease, unspecified whether esophagitis present Chronic heartburn EGD Routine 11/03/2023 10:28 AM CDT COLONOSCOPY Routine 11/03/2023 10:28 AM CDT PATHOLOGY Routine 11/03/2023 12:00 AM CDT TROPONIN, QUANT STAT 05/06/2023 1:57 AM CDT CTA CHEST PE PROTOCOL STAT 05/06/2023 1:42 AM CDT XR CHEST PORTABLE STAT 05/05/2023 11: 53 PM CDT INFLUENZA A & B STAT 05/05/2023 11:41 PM CDT CORONAVIRUS (COVID 19) STAT 11:41 PM CDT TROPONIN, QUANT STAT 05/05/2023 11:41 PM CDT MAGNESIUM STAT 05/05/2023 11:41 PM CDT COMPREHENSIVE METABOLIC PANEL STAT 05/05/2023 11:41 PM CDT CBC W/DIFF AUTOMATED STAT 05/05/2023 11:41 PM CDT ECG 12-LEAD Routine 05/05/2023 11:24 PM CDT XR LUMB SPINE+OBLS 5V Routine 04/20/2023 4:28 PM MANAGER OPERATIONS Midline low back pain without sciatica, unspecified chronicity XR HIP LT 2V Routine 04/20/2023 4:28 PM MANAGER OPERATIONS Left hip pain URINALYSIS WI REFLEX TO CULTURE Routine 04/20/2023 4:12 PM MANAGER OPERATIONS Urinary frequency URINALYSIS WI REFLEX TO CULTURE Routine 02/11/2023 3:48 PM MANAGER OPERATIONS Pre-procedure lab exam HIV 1 ANTIGEN(S), WITH HIV-1 AND HIV-2 ANTIBODIES Routine 02/11/2023 3:48 PM MANAGER OPERATIONS Pre-procedure lab exam XR CHEST PA+LAT Routine 02/11/2023 3:43 PM MANAGER OPERATIONS Pre-op testing HEPATITIS PANEL,ACUTE Routine 02/11/2023 3:35 PM MANAGER OPERATIONS HTN (hypertension) VITAMIN D, 25 OH Routine 02/11/2023 3:35 PM MANAGER OPERATIONS HTN (hypertension) SED RATE, ERYTHROCYTE (ESR) Routine 02/11/2023 3:35 PM MANAGER OPERATIONS HTN (hypertension) PROTHROMBIN TIME, VENOUS Routine 023 3:35 PM MANAGER OPERATIONS HTN (hypertension) COMPREHENSIVE METABOLIC PANEL Routine 02/11/2023 3:35 PM MANAGER OPERATIONS HTN (hypertension) CBC W/DIFF AUTOMATED Routine 02/11/2023 3:35 PM MANAGER OPERATIONS HTN (hypertension) ECG 12-LEAD Routine 02/11/2023 3:34 PM MANAGER OPERATIONS Pre-op testing HEMOGLOBIN, GLYCOSYLATED Routine 023 3:34 PM MANAGER OPERATIONS Pre-procedure lab exam HIV 1 ANTIGEN(S), WITH HIV-1 AND HIV-2 ANTIBODIES Routine 02/11/2023 3:34 PM MANAGER OPERATIONS Pre-procedure lab exam VITAMIN D, 25 OH Routine 02/11/2023 3:34 PM MANAGER OPERATIONS Pre-procedure lab exam SED RATE, ERYTHROCYTE (ESR) Routine 02/11/2023 3:34 PM MANAGER OPERATIONS Pre-procedure lab exam PARTIAL THROMBOPLASTIN TIME,PTT Routine 02/11/2023 3:34 PM MANAGER OPERATIONS Pre-procedure lab exam PROTHROMBIN TIME, VENOUS Routine 023 3:34 PM MANAGER OPERATIONS Pre-procedure lab exam COMPREHENSIVE METABOLIC PANEL Routine 02/11/2023 3:34 PM MANAGER OPERATIONS Pre-procedure lab exam URINALYSIS Routine 02/11/2023 3:34 PM MANAGER OPERATIONS Pre-procedure lab exam CBC W/DIFF AUTOMATED Routine 02/11/2023 3:34 PM MANAGER OPERATIONS Pre-procedure lab exam PROCEDURE GENERIC (SCAN ORDER) 11/17/2022 PROCEDURE GENERIC (SCAN ORDER) 11/17/2022 TROPONIN, QUANT STAT 10/07/2022 4:20 AM CDT XR CHEST PORTABLE STAT 10/07/2022 1:3 4 AM CDT D-DIMER, QUANTITATIVE STAT 10/07/2022 1:03 AM CDT TROPONIN, QUANT STAT 10/07/2022 1:03 AM CDT COMPREHENSIVE METABOLIC PANEL STAT 10/07/2022 1:03 AM CDT CBC W/DIFF AUTOMATED STAT 10/07/2022 1:03 AM CDT ECG 12-LEAD Routine 10/07/2022 1:02 AM CDT XR PELVIS 1 OR 2 VIEWS STAT 2:24 PM CDT XR HUMERUS LT MIN 2V STAT 09/19/2022 11:[address] LUMB SPINE WO CON STAT 09/19/2022 11:[address] CERV SPINE WO CON STAT 09/19/2022 11:[address] HEAD WO CON STAT 09/19/2022 11:23 AM CDT COMPREHENSIVE METABOLIC PANEL STAT 09/19/2022 10:20 AM CDT CBC W/DIFF AUTOMATED STAT 09/19/2022 10:20 AM CDT BASIC METABOLIC PANEL Routine 09/09/2022 8:25 AM CDT Essential hypertension, malignant LIPID PANEL Routine 09/09/2022 8:25 AM CDT Essential hypertension, malignant CT ABD+PEL WO CON SUE 09/09/2022 8:0 9 AM CDT Urine frequency URINALYSIS AUTO DIP Routine 09/01/2022 2 :58 PM CDT Urine frequency USE ECHOCARDIOGRAM SUE 03/04/2022 11 :33 AM MANAGER OPERATIONS Other chest pain TROPONIN, QUANT TIMED 02/19/2022 8:53 PM MANAGER OPERATIONS XR CHEST PORTABLE STAT 02/19/2022 7:1 1 PM MANAGER OPERATIONS LIPASE STAT 02/19/2022 6:36 PM MANAGER OPERATIONS TROPONIN, QUANT STAT 02/19/2022 6:36 PM MANAGER OPERATIONS COMPREHENSIVE METABOLIC PANEL STAT 02/19/2022 6:36 PM MANAGER OPERATIONS CBC W/DIFF AUTOMATED STAT 02/19/2022 6:36 PM MANAGER OPERATIONS ECG 12-LEAD Routine 02/19/2022 6:[address] ABD+PEL W CON STAT 01/19/2022 5:56 PM MANAGER OPERATIONS URINALYSIS, AUTO, COMPLETE STAT 01/19/2022 5:09 PM MANAGER OPERATIONS LIPASE STAT 01/19/2022 3:42 PM MANAGER OPERATIONS COMPREHENSIVE METABOLIC PANEL STAT 01/19/2022 3:42 PM MANAGER OPERATIONS CBC W/DIFF AUTOMATED STAT 01/19/2022 3:42 PM MANAGER OPERATIONS UPPER GI ENDOSCOPY,BIOPSY 01/08/2022 12:37 PM MANAGER OPERATIONS Positive colorectal cancer screening using Cologuard test Heartburn Gastroesophageal reflux COLONOSCOPY FLX DX W/COLLJ SPEC WHEN PFRMD 01/08/2022 12:37 PM MANAGER OPERATIONS Positive colorectal cancer screening using Cologuard test Heartburn Gastroesophageal reflux BASIC METABOLIC PANEL Routine 01/08/2022 10:00 AM MANAGER OPERATIONS EGD Routine 01/08/2022 9:13 AM MANAGER OPERATIONS COLONOSCOPY Routine 01/08/2022 9:13 AM MANAGER OPERATIONS PATHOLOGY Routine 01/08/2022 12:00 AM MANAGER OPERATIONS CREATININE Routine 12/30/2021 3:57 PM MANAGER OPERATIONS Precordial chest pain UREA NITROGEN, BLOOD (BUN) QUANT Routine 12/30/2021 3:57 PM MANAGER OPERATIONS Precordial chest pain COLOGUARD (EXACT SCIENCE) Routine 12/09/2021 4:20 PM CDT Screening for colon cancer MG SCREENING W RAN KELLY DIGI Routine 11/12/2021 8:17 AM CDT Encounter for screening mammogram for malignant neoplasm of breast MRI CERV SPINE WO CON Routine 10/22/2021 10:05 AM CDT DDD (degenerative disc disease), cervical Disorder of neck XR CERV SPINE 3V Routine 10/08/2021 10:4 3 AM CDT Neck pain URINALYSIS WI REFLEX TO CULTURE STAT 07/23/2021 8:[address] ABD+PEL KIDNEY STONE STAT 07/24/19 8:41 AM CDT LIPASE STAT 07/23/2021 7:58 AM CDT COMPREHENSIVE METABOLIC PANEL STAT 07/23/2021 7:58 AM CDT CBC W/DIFF AUTOMATED STAT 07/23/2021 7:58 AM CDT URINALYSIS AUTO DIP Routine 07/23/2021 Low back pain, unspecified back pain laterality, unspecified chronicity, unspecified whether sciatica present XR CHEST PORTABLE STAT 03/21/2021 11: 17 PM MANAGER OPERATIONS D-DIMER, QUANTITATIVE STAT 03/21/2021 11:00 PM MANAGER OPERATIONS TROPONIN, QUANT STAT 03/21/2021 11:00 PM MANAGER OPERATIONS COMPREHENSIVE METABOLIC PANEL STAT 03/21/2021 11:00 PM MANAGER OPERATIONS CBC W/DIFF AUTOMATED STAT 03/21/2021 11:00 PM MANAGER OPERATIONS ECG 12-LEAD Routine 03/21/2021 10:45 PM MANAGER OPERATIONS ECG 12-LEAD Routine 03/18/2021 9:40 PM MANAGER OPERATIONS INFLUENZA A & B STAT 03/18/2021 9:39 PM MANAGER OPERATIONS CORONAVIRUS (COVID-19) ANTIGEN DIRECT OPTICAL STAT 03/18/2021 9:38 PM MANAGER OPERATIONS XR CHEST PORTABLE STAT 03/18/2021 9:3 0 PM MANAGER OPERATIONS TROPONIN, QUANT STAT 03/18/2021 9:25 PM MANAGER OPERATIONS COMPREHENSIVE METABOLIC PANEL STAT 03/18/2021 9:25 PM MANAGER OPERATIONS CBC W/DIFF AUTOMATED STAT 03/18/2021 9:25 PM MANAGER OPERATIONS ELECTROCARDIOGRAM REPORT Routine 021 11:03 PM MANAGER OPERATIONS ECG 12-LEAD STAT 01/29/2021 10:57 PM MANAGER OPERATIONS TROPONIN, QUANT STAT 01/29/2021 10:49 PM MANAGER OPERATIONS D-DIMER, QUANTITATIVE STAT 01/29/2021 9:05 PM MANAGER OPERATIONS TROPONIN, QUANT STAT 01/29/2021 9:05 PM MANAGER OPERATIONS COMPREHENSIVE METABOLIC PANEL STAT 01/29/2021 9:05 PM MANAGER OPERATIONS CBC W/DIFF AUTOMATED STAT 01/29/2021 9:05 PM MANAGER OPERATIONS ELECTROCARDIOGRAM REPORT Routine 9:03 PM MANAGER OPERATIONS XR CHEST PORTABLE STAT 01/29/2021 9:0 2 PM MANAGER OPERATIONS ECG 12-LEAD STAT 01/29/2021 8:59 PM MANAGER OPERATIONS CTA CORONARY W SCORING Routine 2:31 PM MANAGER OPERATIONS Precordial chest pain CREATININE WHOLE BLOOD Routine 2:06 PM MANAGER OPERATIONS HOLTER MONITOR 48 HR REC Routine 1:31 PM CDT Palpitations XR CHEST PORTABLE STAT 12/04/2020 10: 34 PM CDT TROPONIN, QUANT STAT 12/04/2020 10:22 PM CDT COMPREHENSIVE METABOLIC PANEL STAT 12/04/2020 10:22 PM CDT CBC W/DIFF AUTOMATED STAT 12/04/2020 10:22 PM CDT ECG 12-LEAD Routine 12/04/2020 10:19 PM CDT TROPONIN, QUANT STAT 12/04/2020 12:16 AM CDT ECG 12-LEAD STAT 11/30/2020 11:10 PM CDT TROPONIN, QUANT STAT 11/30/2020 10:41 PM CDT D-DIMER, QUANTITATIVE STAT 11/30/2020 10:41 PM CDT COMPREHENSIVE METABOLIC PANEL STAT 11/30/2020 10:41 PM CDT CBC W/DIFF AUTOMATED STAT 11/30/2020 10:41 PM CDT XR CHEST PA+LAT STAT 11/29/2020 12:58 AM CDT LIPASE STAT 11/29/2020 12:51 AM CDT TROPONIN, QUANT STAT 11/29/2020 12:51 AM CDT COMPREHENSIVE METABOLIC PANEL STAT 11/29/2020 12:51 AM CDT CBC W/DIFF AUTOMATED STAT 11/29/2020 12:51 AM CDT ECG 12-LEAD Routine 11/29/2020 12:40 AM CDT COLLECTION VENOUS BLOOD VENIPUNCTURE Routine 10/26/2020 11:16 AM CDT Weight loss, unintentional CBC W/DIFF AUTOMATED Routine 10/26/2020 11:05 AM CDT Weight loss, unintentional COMPREHENSIVE METABOLIC PANEL Routine 10/26/2020 11:05 AM CDT Weight loss, unintentional TSH W/REFLEX Routine 10/26/2020 11:05 AM CDT Weight loss, unintentional VITAMIN D, 25 OH Routine 06/21/2020 11:5 7 AM CDT [facility] WITH LIPID Routine 11:57 AM CDT HEMOGLOBIN, GLYCOSYLATED Routine 021 11:57 AM CDT CORONAVIRUS (COVID 19) Routine 0 2:12 PM CDT Exposure to COVID-19 virus XR CHEST PORTABLE STAT 10/21/2019 10: 59 PM CDT MAGNESIUM STAT 10/21/2019 10:47 PM CDT BASIC METABOLIC PANEL STAT 10/21/2019 10:47 PM CDT CBC W/DIFF AUTOMATED STAT 10/21/2019 10:47 PM CDT ECG 12-LEAD Routine 10/21/2019 10:23 PM CDT ELECTROCARDIOGRAM REPORT Routine 020 10:06 PM CDT TROPONIN, QUANT STAT 05/20/2019 2:36 AM CDT XR CHEST PORTABLE STAT 05/20/2019 12: 00 AM CDT D-DIMER, QUANTITATIVE STAT 05/19/2019 11:41 PM CDT PRO-BRAIN NATRIURETIC PEPTIDE STAT 05/19/2019 11:30 PM CDT TROPONIN, QUANT STAT 05/19/2019 11:30 PM CDT COMPREHENSIVE METABOLIC PANEL STAT 05/19/2019 11:30 PM CDT PARTIAL THROMBOPLASTIN TIME,PTT STAT 05/19/2019 11:30 PM CDT PROTHROMBIN TIME, VENOUS STAT 020 11:30 PM CDT CBC W/DIFF AUTOMATED STAT 05/19/2019 11:30 PM CDT ECG 12-LEAD Routine 05/19/2019 11:29 PM CDT TISSUE EXAM BY PATHOLOGIST Routine 12/04/2017 11:50 AM CDT COLONOSCOPY Routine 12/04/2017 12:00 AM CDT URINALYSIS, AUTO, COMPLETE Routine 08/28/2017 10:24 AM CDT STONE RISK DIAGNOSTIC PROFILE Routine 08/28/2017 10:24 AM CDT URIC ACID BLOOD Routine 08/28/2017 10:24 AM CDT PTH - INTACT PANEL (PTH,PHOS,CA) Routine 08/28/2017 10:24 AM CDT BASIC METABOLIC PANEL Routine 08/28/2017 10:24 AM CDT URINALYSIS, AUTO, COMPLETE Routine 08/28/2017 10:24 AM CDT PTH - INTACT Routine 08/28/2017 10:24 AM CDT URIC ACID BLOOD Routine 08/28/2017 10:24 AM CDT BASIC METABOLIC PANEL Routine 08/28/2017 10:24 AM CDT STONE RISK DIAGNOSTIC PROFILE Routine 08/28/2017 10:24 AM CDT BASIC METABOLIC PANEL Routine 08/11/2017 2:11 PM CDT BASIC METABOLIC PANEL Routine 08/11/2017 2:11 PM CDT URINALYSIS WI REFLEX TO CULTURE STAT 08/09/2017 3:02 AM CDT TROPONIN, QUANT STAT 08/09/2017 1:38 AM CDT TSH W/REFLEX STAT 08/09/2017 1:38 AM CDT COMPREHENSIVE METABOLIC PANEL STAT 08/09/2017 1:38 AM CDT CBC W/DIFF AUTOMATED STAT 08/09/2017 1:38 AM CDT PRV ONLY-RESTING TWELVE LEAD EKG Routine 08/09/2017 1:24 AM CDT POCT GLUCOSE - RG DOCKED DEVICE Routine 08/09/2017 1:12 AM CDT MG SCREENING W RAN KELLY DIGI Routine 07/07/2017 11:[address] ABD+PEL KIDNEY STONE Routine 07/08/19 18 10:45 AM CDT URINE BACTERIA CULTURE Routine 8 10:00 AM CDT URINE BACTERIA CULTURE Routine 8 10:00 AM CDT URINALYSIS AUTO DIP Routine 07/07/2017 9 :22 AM CDT USE ECHOCARDIOGRAM Routine 07/01/2017 Palpitations SOB (shortness of breath) XR CHEST 2V+NIPPLE MARKER Routine 06/17/2017 12:42 PM CDT TSH W/REFLEX Routine 06/17/2017 12:05 PM CDT COMPREHENSIVE METABOLIC PANEL Routine 06/17/2017 12:05 PM CDT CBC W/DIFF AUTOMATED Routine 06/17/2017 12:05 PM CDT VITAMIN B12 / FOLATE Routine 06/17/2017 12:05 PM CDT TSH W/REFLEX Routine 06/17/2017 12:05 PM CDT VITAMIN B12 / FOLATE Routine 06/17/2017 12:05 PM CDT CBC W/DIFF AUTOMATED Routine 06/17/2017 12:05 PM CDT COMPREHENSIVE METABOLIC PANEL Routine 06/17/2017 12:05 PM CDT TSH W/REFLEX Routine 08/23/2016 7:22 AM CDT COMPREHENSIVE METABOLIC PANEL Routine 08/23/2016 7:22 AM CDT CBC W/DIFF AUTOMATED Routine 08/23/2016 7:22 AM CDT CBC W/DIFF AUTOMATED Routine 08/23/2016 7:22 AM CDT COMPREHENSIVE METABOLIC PANEL Routine 08/23/2016 7:22 AM CDT TSH W/REFLEX Routine 08/23/2016 7:22 AM CDT XR ANKLE STANDING LT 3V Routine 11/30/19 15 11:[address] ABD+PEL W CON Routine 10/11/2012 11:[address] ABD+PEL W CON Routine 10/11/2012 10:2 6 AM CDT Results * CORONAVIRUS (COVID-19) INFLUENZA A & B ANTIGEN IA PANEL (03/25/2024) CORONAVIRUS ANTIGEN IA NEGATIVE NEGATIVE [facility] (9401), [facility] INFLUENZA A NEGATIVE NEGATIVE [facility] (9401), [facility] INFLUENZA B NEGATIVE NEGATIVE [facility] (9401), [facility] Internal Control: VALID VALID [facility] (9401), [facility] NASAL STRUCTURE / Unknown 03/25/2024 us Piedad Lopez NP MICROBIOLOGY - GENERAL OR DERABLES Final Result [facility] (9401), [facility] [address] [facility] [address] [address] [place] [address], [place] [phone] * STREP A RAPID (03/25/2024) RAPID STREP TEST NEGATIVE NEGATIVE [facility] (9401), [place] Internal Control: VALID VALID [facility] (9401), [place] STRUCTURE OF ANTERIOR PORTION OF NECK / Unknown 03/25/2024 us Piedad Lopez NP MICROBIOLOGY - GENERAL OR DERABLES Final Result EMILY [facility] (9401), [place] [address] [facility] [address] [place] [address], [place] [phone] * MG SCREENING W RAN KELLY DIGI (01/15/2024 3:39 PM MANAGER OPERATIONS) Only the most recent of3 resultswithin the time period is included. Anatomical Region Laterality Modality Breast Bilateral Mammography 01/15/2024 5:03 PM MANAGER OPERATIONS Impressions 01/15/2024 5:05 PM MANAGER OPERATIONS ===== IMPRESSION: ===== 1. Stable mammographic appearance with no new findings to suggest malignancy in either breast. Assessment: ACR BI-RADS 1 - NEGATIVE Recommendation: 1:Routine Screening Bilateral Comments: Ordered By: ANALISA SANDHU Interpreted By: Kanika Fisher, 01/15/2024 5:03 PM Narrative 01/15/2024 5:05 PM MANAGER OPERATIONS [facility] [address] [place] [address] EXAMINATION: Digital bilateral screening mammogram with 3-D tomosynthesis EXAM DATE/TIME: 01/15/2024 2:50 PM REASON FOR EXAM: screening COMPARISON: 07/07/2017. 11/12/2021 Technique: Digital screening mammography of both breasts was performed in addition to 3-D Tomosynthesis technique. This study was read with the assistance of a computer-aided detection system. Tissue density: There are scattered areas of fibroglandular density. Findings: There is no new focal asymmetry, dominant mass lesion, area of skin thickening, or cluster of suspicious appearing calcifications in either breast to suggest malignancy. us Analisa Sandhu MD MAMMO Final Re sult * XR CHEST PA+LAT (12/16/2023 3:54 PM CDT) Only the most recent of3 resultswithin the time period is included. Anatomical Region Laterality Modality Chest Radiographic Lakisha ging 12/16/2023 3:54 PM CDT Impressions 12/16/2023 3:59 PM CDT IMPRESSION: No acute cardiopulmonary findings. Ordered By: ANALISA SANDHU Interpreted By: Corby Washington MD, 12/16/2023 3:54 PM Narrative 12/16/2023 3:[address] [address] XR CHEST PA+LAT INDICATION: cough and chest pain TECHNIQUE: PA and lateral views of the chest. COMPARISON: Chest radiograph 05/05/2023. FINDINGS: The cardiomediastinal silhouette is stable. No pulmonary vascular congestion. No focal pulmonary consolidation, pleural effusion, or pneumothorax. Mild thoracic spondylosis. Procedure Note Corby Washington MD - 12/16/[address] [address] XR CHEST PA+LAT INDICATION: cough and chest pain TECHNIQUE: PA and lateral views of the chest. COMPARISON: Chest radiograph 05/05/2023. FINDINGS: The cardiomediastinal silhouette is stable. No pulmonary vascularcongestion. No focal pulmonary consolidation, pleural effusion, orpneumothorax. Mild thoracic spondylosis. IMPRESSION: No acute cardiopulmonary findings. Ordered By: ANALISA SANDHU Interpreted By: Corby Washington MD, 12/16/2023 3:54 PM us Analisa Sandhu MD GENERAL IMAGING Final Re sult * Pathology (11/03/2023 12:00 AM CDT) Only the most recent of2 resultswithin the time period is included. PATHOLOGY [facility] Department of Laboratory Medicine [address] [place] [address] , extension [phone] Pathology Report Surgical Pathology Report Name: AZAR LAMA Specimen #: [id number] Age: 2 1975 (Age: 48) Location: [facility] Sex: F Procedure Date: 11/03/2023 Hospital #: [id number] Date Received: 11/04/2023 Date Reported: 11/10/2023 Provider: ELIZABETH VALIENTE MD Source: A: Antrum, biopsies B: Colon, sigmoid, biopsies C: Terminal ileum, biopsies D: Rectum, mucosa, biopsies E: Colon, random, biopsies Clinical History: Diarrhea, abdominal pain, GERD, and chronic heartburn. Gross Description: A. Received in formalin, labeled with a patient label and as biopsies gastric antrum is a 0.2 cm piece of parham tissue. The specimen is entirely submitted in cassette A1. B. Received in formalin, labeled with a patient label and as sigmoid polyps are 3 pieces of parham tissue ranging from 0.2 to 0.3 cm. The specimen is entirely submitted in cassette B1. C. Received in formalin, labeled with a patient label and as biopsy terminal ileum is a 0.2 cm piece of parham tissue. The specimen is entirely submitted in cassette C1. D. Received in formalin, labeled with a patient label and as rectal biopsy are 2 pieces of parham tissue, each 0.2 cm. The specimen is entirely submitted in cassette D1. E. Received in formalin, labeled with a patient label and as random colon biopsies is a 0.4 cm strip of delicate parham tissue. The specimen is entirely submitted in cassette E1. Gross examination (when applicable), interpretation, and sign out were performed at [facility], [address] [place] [address], [place] [address]. All immunohistochemical and histochemical tests were developed by and performed at [facility], [address] [place] [address]. All tests reported here have not been cleared or approved by the U.S. Food and Drug Administration (FDA). This laboratory is regulated under CLIA as qualified to perform high-complexity testing. These tests are used for clinical purposes. They should not be regarded as investigational or for research. Positive and negative controls show appropriate reactivity. FINAL DIAGNOSIS: A. Stomach, antrum, biopsy: -Reactive gastropathy. -Focal intestinal metaplasia. -Immunohistochemical stain for Helicobacter pylori is negative. B. Colon, sigmoid polyps, polypectomies: -Fragments of hyperplastic polyp. C. Small intestine, terminal ileum, biopsy: -No significant histopathologic abnormality. D. Colon, rectum, biopsies: -Colonic mucosa with focal hyperplastic changes. E. Colon, random biopsies: -No significant histopathologic abnormality. Electronically Signed Out MARK PRATHER MD [facility] TISSUE GASTRIC BIOPSY SPECIMEN / Unknown 11/03/2023 12:39 PM CDT Tissue specimen (specimen) COLON STRUCTURE / Unknown 11/03/2023 12:46 PM CDT Tissue specimen (specimen) COLON STRUCTURE / Unknown 11/03/2023 12:50 PM CDT Tissue specimen (specimen) COLON STRUCTURE / Unknown 11/03/2023 12:54 PM CDT Tissue specimen (specimen) COLON STRUCTURE / Unknown 11/03/2023 12:53 PM CDT us Elizabeth Valiente MD PATHOLOGY/CYTOLOGY ORDERABLE S Final Result [facility] [address] [place], [place] [address], [id number] * TROPONIN, QUANT (05/06/2023 1:57 AM CDT) Only the most recent of17 resultswithin the time period is included. TROPONIN I HIGH SENSITIVITY 5 <51 ng/L 05/06/2023 2:32 AM CDT [facility] Comment: HIGH DOSES OF BIOTIN, TROPONIN-SPECIFIC AUTOANTIBODIES, AND ANTIBODY THERAPY CONTAINING HAMA MAY INTERFERE WITH THIS TEST RESULT. CORRELATION TO CLINICAL HISTORY AND PRESENTATION RECOMMENDED. 05/06/2023 1:57 AM CDT Sana Herrmann DO LABORATORY Final Result [facility] [address] [facility] [place] [address], * CTA CHEST PE PROTOCOL (05/06/2023 1:42 AM CDT) Anatomical Region Laterality Modality Chest Computed Tomogra phy 05/06/2023 1:49 AM CDT Impressions 05/06/2023 1:55 AM CDT IMPRESSION: 1. No pulmonary embolism. 2. Mild diffuse bronchial wall thickening which can be seen with bronchitis or reactive airways disease. Referred By: Interpreted By: Shari Connors MD, 05/06/2023 1:49 AM Narrative 05/06/2023 1:55 AM CDT EXAMINATION: CTA chest with INDICATION: Shortness of breath x2 weeks and chest pain x3 days. COMPARISON: Chest radiograph 02/11/2023. TECHNIQUE: Axial images were obtained through the thorax following intravenous contrast administration. Additional images were reconstructed in the coronal and sagittal planes. 3D slab maximum intensity projection (MIP) reformats were obtained and reviewed. 75 mL of Isovue-370 was administered intravenously. DOSE OPTIMIZATION: This facility uses dose optimization techniques as appropriate to perform exams, including at least one of the following techniques: 1. Automated exposure control. 2. Adjustment of the mA and/or kV according to patient size (this includes techniques or standardized protocols for targeted exams where dose is matched to the indication/reason for exam, i.e. extremities or head). 3. Use of iterative reconstructive technique. FINDINGS: Thyroid Gland: Unremarkable. Pulmonary Artery and Thoracic Aorta: There is no pulmonary embolism. There is no thoracic aortic dissection or aneurysm. Heart: Normal in size and no pericardial effusion. Mediastinum: No adenopathy by imaging size criteria. Lungs: The central tracheobronchial tree is clear. Mild diffuse bronchial wall thickening. No airspace disease. No pleural effusion. No pneumothorax. Chest Wall: Unremarkable. Osseous Structures: There is no bony destructive process. Upper Abdomen: Unremarkable. Procedure Note Shari Connors MD - 05/06/2023 EXAMINATION: CTA chest with INDICATION: Shortness of breath x2 weeks and chest pain x3 days. COMPARISON: Chest radiograph 02/11/2023. TECHNIQUE: Axial images were obtained through the thorax followingintravenous contrast administration. Additional images were reconstructedin the coronal and sagittal planes. 3D slab maximum intensity projection(MIP) reformats were obtained and reviewed. 75 mL of Isovue-370 wasadministered intravenously. DOSE OPTIMIZATION: This facility uses dose optimization techniques asappropriate to perform exams, including at least one of the followingtechniques: 1. Automated exposure control. 2. Adjustment of the mA and/or kV according to patient size (this includestechniques or standardized protocols for targeted exams where dose ismatched to the indication/reason for exam, i.e. extremities or head). 3. Use of iterative reconstructive technique. FINDINGS: Thyroid Gland: Unremarkable. Pulmonary Artery and Thoracic Aorta: There is no pulmonary embolism. Thereis no thoracic aortic dissection or aneurysm. Heart: Normal in size and no pericardial effusion. Mediastinum: No adenopathy by imaging size criteria. Lungs: The central tracheobronchial tree is clear. Mild diffuse bronchialwall thickening. No airspace disease. No pleural effusion. No pneumothorax. Chest Wall: Unremarkable. Osseous Structures: There is no bony destructive process. Upper Abdomen: Unremarkable. IMPRESSION: 1. No pulmonary embolism. 2. Mild diffuse bronchial wall thickening which can be seen withbronchitis or reactive airways disease. Referred By: Interpreted By: Shari Connors MD, 05/06/2023 1:49 AM Sana Herrmann DO CT Final Result * XR CHEST PORTABLE (05/05/2023 11:53 PM CDT) Only the most recent of9 resultswithin the time period is included. Anatomical Region Laterality Modality Chest Radiographic Lakisha ging 05/06/2023 12:3 8 AM CDT Impressions 05/06/2023 12:40 AM CDT IMPRESSION: No evidence of acute cardiopulmonary disease. Referred By: Interpreted By: Shari Connors MD, 05/06/2023 12:38 AM Narrative 05/06/2023 12:40 AM CDT INDICATION: Chest pain. COMPARISON: Chest radiographs 02/11/2023. TECHNIQUE: Single frontal view of the chest. FINDINGS: External wires overlie the chest wall limiting evaluation of underlying structures. Lungs: There is no focal consolidation, pleural effusion or pneumothorax. Heart and Mediastinum: The cardiac silhouette is not enlarged. The mediastinal contours are unremarkable. Bones: No suspicious osseous lesion. Procedure Note Shari Connors MD - 05/06/2023 INDICATION: Chest pain. COMPARISON: Chest radiographs 02/11/2023. TECHNIQUE: Single frontal view of the chest. FINDINGS: External wires overlie the chest wall limiting evaluation of underlyingstructures. Lungs: There is no focal consolidation, pleural effusion orpneumothorax. Heart and Mediastinum: The cardiac silhouette is not enlarged. Themediastinal contours are unremarkable. Bones: No suspicious osseous lesion. IMPRESSION: No evidence of acute cardiopulmonary disease. Referred By: Interpreted By: Shari Connors MD, 05/06/2023 12:38 AM Sana Herrmann DO GENERAL IMAGING Final Result * CORONAVIRUS (COVID 19) (05/05/2023 11:41 PM CDT) Only the most recent of2 resultswithin the time period is included. CORONAVIRUS SARS COV 2 RNA NEGATIVE NEGATIVE 05/06/2023 12:10 AM CDT [facility] Comment: NEGATIVE RESULTS DO NOT RULE OUT COVID 19 AND SHOULD NOT BE USED THE SOLE BASIS FOR TREATMENT OR PATIENT MANAGEMENT DECISIONS, INCLUDING INFECTION CONTROL DECISIONS. NEGATIVE RESULTS SHOULD BE CONSIDERED IN THE CONTEXT OF A PATIENT'S RECENT EXPOSURES, HISTORY AND THE PRESENCE OF CLINICAL SIGNS AND SYMPTOMS CONSISTENT WITH COVID 19. THE ID NOW COVID-19 2.0 TEST HAS BEEN AUTHORIZED BY THE FDA UNDER EAU FOR USE BY AUTHORIZED LABORATORIES. PERFORMED BY NUCLEIC ACID AMPLIFICATION FOR MOLECULAR QUALITATIVE DETECTION OF SARS-COV-2. SPECIMEN TYPE NASAL 05/05/2023 11:36 PM CDT [facility] NASOPHARYNGEAL SWAB / Unknown 05/05/2023 11:41 PM CDT [facility] MICROBIOLOGY - GENERAL ORDERABL ES Final Result Performing Organization Address [facility] de Phone Number [facility] [address] [place] [address], [place] [phone] * (ABNORMAL) INFLUENZA A & B (05/05/2023 11:41 PM CDT) Only the most recent of2 resultswithin the time period is included. SPECIMEN TYPE NASOPHARYNX 05/05/2023 11:51 PM CDT [facility] INFLUENZA A NEGATIVE NEGATIVE 05/06/2023 12:13 AM CDT [facility] INFLUENZA B POSITIVE(A) NEGATIVE 05/06/2023 12:13 AM CDT [facility] Comment: CALLED RESULT CALLED TO KAYLA Roblero CALLED RESULT CALLED TO KAYLA Roblero [id number] RS READ BACK AND VERIFIED NASOPHARYNGEAL SWAB / Unknown 05/05/2023 11:41 PM CDT Sana Herrmann MICROBIOLOGY - GENERAL ORDERABL ES Final Result Performing Organization Address [facility] de Phone Number [facility] [address] [place] [address], [place] [phone] * (ABNORMAL) COMPREHENSIVE METABOLIC PANEL (05/05/2023 11:41 PM CDT) Only the most recent of21 resultswithin the time period is included. GLUCOSE 106(H) 70 - 99 MG/DL 05/06/2023 12:09 AM CDT [facility] BUN 11 7 - 18 MG/DL 05/06/2023 12:09 AM [facility] CREATININE S/P/B 0.68 0.55 - 1.02 MG/DL 05/06/2023 12:09 AM [facility] SODIUM S/P/B 137 136 - 145 MMOL/L 05/06/2023 12:09 AM [facility] POTASSIUM S/P/B 3.3(L) 3.5 - 5.1 MMOL/L 05/06/2023 12:09 AM [facility] CHLORIDE S/P/B 100 100 - 108 MMOL/L 05/06/2023 12:09 AM [facility] CO2 24.4 21 - 32 MMOL/L 05/06/2023 12:09 AM [facility] CALCIUM S/P/B 8.9 8.5 - 10.1 MG/DL 05/06/2023 12:09 AM [facility] BILIRUBIN TOTAL S/P/B 0.3 0.2 - 1.2 MG/DL 05/06/2023 12:09 AM [facility] TOTAL PROTEIN S/P/B 6.9 6.4 - 8.2 G/DL 05/06/2023 12:09 AM [facility] ALBUMIN S/P/B 3.6 3.4 - 5.0 G/DL 05/06/2023 12:09 AM [facility] AST 10(L) 15 - 37 U/L 05/06/2023 12:09 AM [facility] ALT 14 14 - 55 U/L 05/06/2023 12:09 AM [facility] ALKALINE PHOSPHATASE S/P/B 126 50 - 136 U/L 05/06/2023 12:09 AM [facility] ANION GAP 12.6 5 - 15 MMOL/L 05/06/2023 12:09 AM CDT [facility] BUN CREATININE RATIO 16.2 6 - 26 05/06/2023 12:09 AM CDT [facility] A/G RATIO 1.1 1.0 - 2.0 RATIO 05/06/2023 12:09 AM CDT [facility] GFR ESTIMATE >90 >90 ML/MIN/1.7 3 M2 05/06/2023 12:09 AM CDT [facility] Comment: NOTE: eGFR is not calculated for patients <18 years of age. This is an estimated GFR calculation using the new CKD EPI creatinine equation without race and so does not require a correction factor for race. This estimated GFR should not be used for calculating drug doses. 05/05/2023 11:4 1 PM CDT Sana Herrmann DO LABORATORY Final Result [facility] [address] [place] [address], * (ABNORMAL) CBC W/DIFF AUTOMATED (05/05/2023 11:41 PM CDT) Only the most recent of22 resultswithin the time period is included. WBC 10.36 4.4 - 11.0 x10'3/uL 05/05/2023 11:53 PM CDT [facility] RBC 4.57 4.50 - 5.10 x10'6/uL 05/05/2023 11:53 PM CDT [facility] HGB 14.5 12.3 - 15.3 G/DL 05/05/2023 11:53 PM CDT [facility] HCT 42.9 35.9 - 44.6 % 05/05/2023 11:53 PM CDT [facility] MCV 93.9 80.0 - 96.0 FL 05/05/2023 11:53 PM CDT [facility] MCH 31.7(H) 25.3 - 30.9 PG 05/05/2023 11:53 PM CDT [facility] MCHC 33.8 31.0 - 34.1 G/DL 05/05/2023 11:53 PM CDT [facility] RDW 13.0 12.4 - 15.1 % 05/05/2023 11:53 PM CDT [facility] PLT 221 151 - 353 x10'3/uL 05/05/2023 11:53 PM T [facility] MPV 10.1 9.6 - 12.0 FL 05/05/2023 11:53 PM CDT [facility] RBC MORPHOLOGY NORMAL 05/05/2023 11:53 PM T [facility] PLT MORPH. NORMAL 05/05/2023 11:53 PM CDT [facility] WBC MORPHOLOGY NORMAL 05/05/2023 11:53 PM T [facility] LYMPHOCYTES % 25.3 15.8 - 45.0 % 05/05/2023 11:53 PM CDT [facility] NEUTROPHILS % 63.1 42.1 - 71.9 % 05/05/2023 11:53 PM CDT [facility] MONOCYTES % 9.4 5.7 - 12.5 % 05/05/2023 11:53 PM CDT [facility] EOSINOPHILS 1.5 0.0 - 5.6 % 05/05/2023 11:53 PM CDT [facility] BASOPHILS 0.4 0.0 - 1.3 % 05/05/2023 11:53 PM CDT [facility] ABS. NEUTROPHILS 6.54(H) 1.40 - 6.00 x10'3/uL 05/05/2023 11:53 PM CDT [facility] IMMATURE GRANS % 0.3 0.0 - 0.5 % 05/05/2023 11:53 PM CDT [facility] ABS. LYMPHOCYTES 2.62 0.80 - 4.70 x10'3/uL 05/05/2023 11:53 PM CDT [facility] 05/05/2023 11:4 1 PM CDT [facility] LABORATORY Final Result Performing Organization Address City/[facility]/ZIP Co de Phone Number [facility] [address] [place] [address], [place] [phone] * MAGNESIUM (05/05/2023 11:41 PM CDT) Only the most recent of2 resultswithin the time period is included. MAGNESIUM 1.9 1.8 - 2.4 MG/DL 05/06/2023 12:09 AM CDT [facility] 05/05/2023 11:4 1 PM CDT Sana Basilia [facility] Final Result Performing Organization Address City/[facility]/ZIP Co de Phone Number [facility] [address] [place] [address], [place] [phone] * ECG 12 lead (05/05/2023 11:24 PM CDT) Only the most recent of13 resultswithin the time period is included. 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1975 Requested By: SANA HERRMANN Order Number: [id number] Reading : Lorenza Reyes Measurements Intervals [place] Rate: 102 P: 75 GA: 148 QRS: 72 QRSD: 85 T: 52 QT: 337 QTc: 440 Interpretive Statements SINUS TACHYCARDIA ABNORMAL RHYTHM ECG Compared to ECG 02/11/2023 15:34:08 Sinus rhythm no longer present Procedure Note Lorenza Reyes MD - 05/07/2023 [facility] Test Date: 2023-05-05 Pat Name: AZAR LAMA Department: 85 Room: EXAM 101 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 ALARA (As Low As Reasonably Achievable) / Image Gently techniques. FINDINGS: No consolidation, effusion, or suspicious pulmonary nodule within the visualized lung bases. The visualized cardiomediastinal structures are within normal limits. Lack of intravenous contrast limits evaluation of the abdominopelvic viscera and vasculature. Few punctate nonobstructive renal calculi bilaterally measuring up to 2 mm laterally within the right renal pelvis. Amorphous hyperattenuation of the renal papillae bilaterally may represent early stone formation or hemoconcentration. Symmetric renal cortical attenuation without significant perinephric stranding, obstructing calculus, or hydronephrosis. No discrete renal mass. The ureters are normal caliber without calculus or surrounding inflammatory change.. The urinary bladder is smoothly but incompletely distended, limiting evaluation. No focal urinary bladder thickening, perivesicular stranding, or intraluminal calculus. Scattered calcified pelvic phleboliths. The uterus is surgically absent. No suspicious adnexal lesion. No significant free fluid pelvis. The liver, spleen, pancreas, and adrenal glands are normal in morphology and attenuation without suspicious lesion. No pancreaticobiliary duct dilatation or peripancreatic inflammatory stranding. No calcified cholelithiasis or pericholecystic inflammatory changes. The gastrointestinal tract is normal in caliber without discrete bowel wall thickening. The appendix and terminal ileum are within normal limits. No significant diverticular disease. No ascites or pneumoperitoneum. No mesenteric or retroperitoneal adenopathy. The aorta and IVC are normal in caliber. Subtle nodular suprapubic dermal thickening which may reflect scarring from prior Pfannenstiel incision and/or keratogenic cyst formation. No suspicious soft tissue mass or fluid collection. Mild multilevel spondylosis mild discogenic disease. Long-standing stable sclerotic bone island within the right S2 sacral ala. No acute or aggressive osseous lesion. Procedure Note Vadim López MD - 09/09/2022 EXAMINATION: CT ABD+PEL WO CON INDICATIONS: Frequency of micturition COMPARISON: 07/23/2021 and 10/11/2012. TECHNIQUE: Contiguous unenhanced axial CT images through the abdomen andpelvis with coronal and sagittal reformats. A dose lowering technique was used for this procedure, which may include,but is not limited to, dose reduction technique, automated exposurecontrol, the use of iterative reconstruction, and ALARA (As Low AsReasonably Achievable) / Image Gently techniques. FINDINGS: No consolidation, effusion, or suspicious pulmonary nodule within thevisualized lung bases. The visualized cardiomediastinal structures are within normal limits. Lack of intravenous contrast limits evaluation of the abdominopelvicviscera and vasculature. Few punctate nonobstructive renal calculi bilaterally measuring up to 2 mmlaterally within the right renal pelvis. Amorphous hyperattenuation of therenal papillae bilaterally may represent early stone formation orhemoconcentration. Symmetric renal cortical attenuation without significant perinephricstranding, obstructing calculus, or hydronephrosis. No discrete renal mass. The ureters are normal caliber without calculus or surroundinginflammatory change.. The urinary bladder is smoothly but incompletely distended, limitingevaluation. No focal urinary bladder thickening, perivesicular stranding, orintraluminal calculus. Scattered calcified pelvic phleboliths. The uterus is surgically absent. No suspicious adnexal lesion. No significant free fluid pelvis. The liver, spleen, pancreas, and adrenal glands are normal in morphologyand attenuation without suspicious lesion. No pancreaticobiliary duct dilatation or peripancreatic inflammatorystranding. No calcified cholelithiasis or pericholecystic inflammatory changes. The gastrointestinal tract is normal in caliber without discrete bowelwall thickening. The appendix and terminal ileum are within normal limits. No significant diverticular disease. No ascites or pneumoperitoneum. No mesenteric or retroperitoneal adenopathy. The aorta and IVC are normal in caliber. Subtle nodular suprapubic dermal thickening which may reflect scarringfrom prior Pfannenstiel incision and/or keratogenic cyst formation. No suspicious soft tissue mass or fluid collection. Mild multilevel spondylosis mild discogenic disease. Long-standing stable sclerotic bone island within the right S2 sacralala. No acute or aggressive osseous lesion. IMPRESSION: 1. No acute or localizing abdominopelvic abnormality. 2. Nephrolithiasis with mild calculus burden. No obstructing/distalurinary calculus, urinary tract dilatation, or inflammatory changes of theurinary tracts. Ordered By: LEONARD WALLACE Interpreted By: Vadim López, 09/09/2022 8:31 AM us Leonard Wallace CLERICAL RECEPTIONIST-BC CT Final Resul t * (ABNORMAL) URINALYSIS AUTO DIP (09/01/2022 2:58 PM CDT) Only the most recent of3 resultswithin the time period is included. COLOR (U) YELLOW YELLOW [facility] (9401), [facility] TRANSPARENCY CLEAR CLEAR [facility] (9401), [facility] GLUCOSE (U) NEGATIVE NEGATIVE MG/DL [facility] (9401), [facility] BILIRUBIN (U) NEGATIVE NEGATIVE MG-HOL Y CROSS [facility] (9401), [facility] KETONES MG/DL (U) NEGATIVE NEGATIVE MG/DL [facility] (9401), [facility] SPECIFIC GRAVITY (U) 1.025 1.001 - 1.035 [facility] (9401), [facility] BLOOD (U) MODERATE (2+ Hemolyzed, About 50 rbc/uL)(A) NEGATIVE [facility] (9401), [facility] U PH 5.5 5.0 - 9.0 [facility] (9401), [facility] PROTEIN (U) NEGATIVE NEGATIVE mg/dL [facility] (9401), [facility] UROBILINOGEN 0.2 0.2 - 1.0 EU/dL = mg/dL [facility] (9401), [facility] NITRITES NEGATIVE NEGATIVE MG/DL [facility] (9401), [facility] LEUKOCYTES (U) NEGATIVE NEGATIVE MG-HO LY CROSS [facility] (9401), [facility] URINE SPECIMEN OBTAINED BY CLEAN CATCH PROCEDURE / Unknown 09/01/2022 2:58 PM CDT us Leonard Wallace [facility]- URINE ORDERABLES Final Resu lt [facility] (9401), [facility] [address] [facility] [place] [id number], * USE ECHOCARDIOGRAM (03/04/2022 11:33 AM MANAGER OPERATIONS) Anatomical Region Laterality Modality Cardiac Ultrasound Monie Brown ROLL CONTOUR GRINDER ECHO Final Resul t * LIPASE (02/19/2022 6:36 PM MANAGER OPERATIONS) Only the most recent of4 resultswithin the time period is included. LIPASE 183 73 - 393 UNITS/L 02/19/2022 7:01 PM MANAGER OPERATIONS [facility] 02/19/2022 6:36 PM MANAGER OPERATIONS Geri Urbina MD LABORATORY Final Resu lt [facility] [address] [place] [address], * CT ABD+PEL W IV CON ONLY (01/19/2022 5:56 PM MANAGER OPERATIONS) Only the most recent of3 resultswithin the time period is included. Anatomical Region Laterality Modality Abdomen Computed Tomogra phy 01/19/2022 6:08 PM MANAGER OPERATIONS Impressions 01/19/2022 6:15 PM MANAGER OPERATIONS IMPRESSION: 1. Findings suggestive of mild jejunal enteritis. 2. Tiny hypoattenuating lesions in the bilateral kidneys, which are technically indeterminate on this study but most commonly would represent benign cysts. Ordered By: KATY HAAS Interpreted By: Fab Bee MD, 01/19/2022 6:08 PM Narrative 01/19/2022 6:15 PM MANAGER OPERATIONS EXAMINATION: CT ABDOMEN/PELVIS WITH CONTRAST INDICATION: RLQ abdominal pain COMPARISON: CT abdomen and pelvis without contrast on 07/23/2021. TECHNIQUE: Computed tomography of the abdomen, and pelvis was performed after administration of intravenous contrast, 75mL of IOPAMIDOL 76 % IV SOLN, without immediate complication, according to routine protocol. Radiation dose reduction technique(s) were used. FINDINGS: Lower Chest: Lung bases are clear. No cardiomegaly or pericardial effusion. Upper abdominal organs: The liver, spleen, pancreas, gallbladder, biliary tree, and adrenal glands are normal. Tiny hypoattenuating lesions in the bilateral kidneys, which are technically indeterminate on this study but most commonly would represent benign cysts. Vascular: The abdominal aorta is normal in caliber. Lymph nodes: No retroperitoneal, mesenteric, or inguinal lymphadenopathy. Gastrointestinal: No bowel destruction. There is mildly thickened loops of jejunum without significant perienteric inflammatory stranding, suggestive of mild enteritis. The appendix is normal. Miscellaneous: No free intraperitoneal air or ascites. Pelvis: No free pelvic fluid. The urinary bladder is incompletely distended.. No adnexal mass. The uterus is surgically absent. MSK: No acute osseous abnormality or destructive bone lesions. Procedure Note Fab Bee MD - 01/19/2022 EXAMINATION: CT ABDOMEN/PELVIS WITH CONTRAST INDICATION: RLQ abdominal pain COMPARISON: CT abdomen and pelvis without contrast on 07/23/2021. TECHNIQUE: Computed tomography of the abdomen, and pelvis was performedafter administration of intravenous contrast, 75mL of IOPAMIDOL 76 % IVSOLN, without immediate complication, according to routine protocol.Radiation dose reduction technique(s) were used. FINDINGS: Lower Chest: Lung bases are clear. No cardiomegaly or pericardialeffusion. Upper abdominal organs: The liver, spleen, pancreas, gallbladder, biliarytree, and adrenal glands are normal. Tiny hypoattenuating lesions in thebilateral kidneys, which are technically indeterminate on this study butmost commonly would represent benign cysts. Vascular: The abdominal aorta is normal in caliber. Lymph nodes: No retroperitoneal, mesenteric, or inguinallymphadenopathy. Gastrointestinal: No bowel destruction. There is mildly thickened loops ofjejunum without significant perienteric inflammatory stranding, suggestiveof mild enteritis. The appendix is normal. Miscellaneous: No free intraperitoneal air or ascites. Pelvis: No free pelvic fluid. The urinary bladder is incompletelydistended.. No adnexal mass. The uterus is surgically absent. MSK: No acute osseous abnormality or destructive bone lesions. IMPRESSION: 1. Findings suggestive of mild jejunal enteritis. 2. Tiny hypoattenuating lesions in the bilateral kidneys, which aretechnically indeterminate on this study but most commonly would representbenign cysts. Ordered By: KATY HAAS Interpreted By: Fab Bee MD, 01/19/2022 6:08 PM us Katy Haas MD CT Final Result * URINALYSIS, AUTO, COMPLETE (01/19/2022 5:09 PM MANAGER OPERATIONS) Only the most recent of3 resultswithin the time period is included. COLOR (U) YELLOW 01/19/2022 5:29 PM [facility] TRANSPARENCY CLEAR 01/19/2022 5:29 PM [facility] SPECIFIC GRAVITY (U) 1.010 1.000 - 1.030 01/19/2022 5:29 PM [facility] U PH 7.0 5.0 - 9.0 01/19/2022 5:29 PM [facility] LEUKOCYTES (U) NEGATIVE NEGATIVE 01/19/2022 5:29 PM [facility] NITRITES NEGATIVE NEGATIVE 01/19/2022 5:29 PM [facility] PROTEIN (U) NEGATIVE NEGATIVE 01/19/2022 5:29 PM [facility] URINE GLUCOSE NEGATIVE NEGATIVE 01/19/2022 5:29 PM [facility] KETONES MG/DL (U) NEGATIVE NEGATIVE 01/19/2022 5:29 PM [facility] BILIRUBIN (U) NEGATIVE NEGATIVE 01/19/2022 5:29 PM [facility] BLOOD (U) NEGATIVE NEGATIVE 01/19/2022 5:29 PM [facility] WBC/HPF NONE SEEN 0 - 5 /HPF 01/19/2022 5:29 PM [facility] RBC/HPF NONE SEEN 0 - 5 /HPF 01/19/2022 5:29 PM [facility] EPI/HPF FEW /HPF 01/19/2022 5:29 PM MANAGER OPERATIONS [facility] CULTURE & SENSITIVITY INDICATED? CULTURE IS NOT INDICATED 01/19/2022 5:29 PM MANAGER OPERATIONS [facility] URINE SPECIMEN OBTAINED BY CLEAN CATCH PROCEDURE / Unknown 01/19/2022 5:09 PM MANAGER OPERATIONS Katy Haas MD URINE ORDERABLES Final Result Performing Organization Address [facility]/ZIP Co de Phone Number [facility] [address] [place] [address], [place] [phone] * BUN (12/30/2021 3:57 PM MANAGER OPERATIONS) BUN 16 7 - 18 MG/DL 12/30/2021 4:22 PM MANAGER OPERATIONS [facility] 12/30/2021 3:57 PM MANAGER OPERATIONS Rosibel Sharma MD LABORATORY Final Resul t Performing Organization Address [facility] Co de Phone Number [facility] [address] [place] [address], [place] [phone] * (ABNORMAL) CREATININE (12/30/2021 3:57 PM MANAGER OPERATIONS) CREATININE S/P/B 0.95 0.55 - 1.02 MG/DL 12/30/2021 4:22 PM MANAGER OPERATIONS [facility] GFR ESTIMATE 75(L) >90 ML/MIN/1.7 3 M2 12/30/2021 4:22 PM MANAGER OPERATIONS [facility] Comment: NOTE: eGFR is not calculated for patients <18 years of age. This is an estimated GFR calculation using the new CKD EPI creatinine equation without race and so does not require a correction factor for race. This estimated GFR should not be used for calculating drug doses. 12/30/2021 3:57 PM MANAGER OPERATIONS us Rosibel Sharma MD LABORATORY Final Resul t [facility] [address] [place] [address], * (ABNORMAL) COLOGUARD (EXACT SCIENCE) (12/09/2021 4:20 PM CDT) COLOGUARD RESULT Positive( A) Negative [employer] (CLIA #:[id number]) Comment: POSITIVE TEST RESULT. A positive Cologuard result should be followed with a colonoscopy or visual examination of the colon. The normal value (reference range) for this assay is negative. TEST DESCRIPTION: Composite algorithmic analysis of stool DNA-biomarkers with hemoglobin immunoassay. Quantitative values of individual biomarkers are not reportable and are not associated with individual biomarker result reference ranges. Cologuard is intended for colorectal cancer screening of adults of either sex, 45 years or older, who are at average-risk for colorectal cancer (CRC). Cologuard has been approved for use by the [place] FDA. The performance of Cologuard was established in a cross sectional study of average-risk adults aged 50-84. Cologuard performance in patients ages 45 to 49 years was estimated by sub-group analysis of near-age groups. Colonoscopies performed for a positive result may find as the most clinically significant lesion: colorectal cancer [4.0%], advanced adenoma (including sessile serrated polyps greater than or equal to 1cm diameter) [20%] or non- advanced adenoma [31%]; or no colorectal neoplasia [45%]. These estimates are derived from a prospective cross-sectional screening study of 10,000 individuals at average risk for colorectal cancer who were screened with both Cologuard and colonoscopy. (Ashu Blanco al, N Engl J Med 2014;370(14):2441-2463.) Cologuard may produce a false negative or false positive result (no colorectal cancer or precancerous polyp present at colonoscopy follow up). A negative Cologuard test result does not guarantee the absence of CRC or advanced adenoma (pre-cancer). The current Cologuard screening interval is every 3 years. ([place] [employer] and [place]. Multi-Society Task Force). Cologuard performance data in a 10,000 patient pivotal study using colonoscopy as the reference method can be accessed at the following location: [email or web address]. Additional description of the Cologuard test process, warnings and precautions can be found at [email or web address]. STOOL STOOL SPECIMEN / Unknown 12/09/2021 4:20 PM CDT 12/10/2021 12:36 PM CDT us Monie Brown ROLL CONTOUR GRINDER BODY FLUIDS AND STOOLS KACY BILL Final Result [facility] ([facility] [address] [facility]) [address] [place] [address] [place] [address], [employer] (CLIA #:[id number]) [address] [place] [address] * MRI CERV SPINE WO CON (10/22/2021 10:05 AM CDT) Anatomical Region Laterality Modality Spine Magnetic Resonan ce 10/23/2021 8:06 AM CDT Impressions 10/23/2021 8:29 AM CDT IMPRESSION: ===== 1. No significant spinal canal stenosis at any level. Normal cervical cord. 2. Most prominent foraminal stenosis is on the right at C4-C5 level rated as severe. Individual levels as above. 3. Straightening of cervical lordosis may be secondary to muscle spasm or positioning for the study. Referred By: MONIE BROWN Interpreted By: Andrew Garduno MD, 10/23/2021 8:06 AM Narrative 10/23/2021 8:29 AM CDT EXAMINATION: MRI of the cervical spine EXAM DATE/TIME: 10/22/2021 9:05 AM REASON FOR EXAM: Neck pain, chronic, degenerative changes on xray History of chronic neck pain. No known injury. COMPARISON: No prior cervical MRI. TECHNIQUE: Multiplanar, multisequence imaging of the cervical spine was obtained without the use of IV contrast agent. FINDINGS: Limited evaluation of posterior fossa contents unremarkable. The visualized posterior sphenoid sinuses are clear. There is straightening of cervical lordosis. No evidence of acute fracture or dislocation. No destructive osseous lesions. No significant paravertebral soft tissue structural abnormalities. Multilevel degenerative changes are seen. Individual levels as follows: C2-C3: Minimal disc desiccation. No spinal canal or foraminal stenosis on either side. No disc protrusion. C3-C4: Disc desiccation. No disc protrusion. No spinal canal or foraminal stenosis on either side. C4-C5: Disc desiccation. Minimal diffuse disc bulge. Bilateral uncovertebral hypertrophy slightly more prominent on the right. Far right and far left posterolateral disc protrusions noted as well. There is no significance spinal canal stenosis. There is moderate to severe left and severe right foraminal stenosis however. C5-C6: Disc desiccation. No spinal canal or foraminal stenosis on either side. Minimal uncovertebral hypertrophy. C6-C7: Disc desiccation with diffuse disc bulge. Bilateral uncovertebral hypertrophy slightly more prominent on the left. Far left posterolateral tiny disc protrusion. Moderate left and no right foraminal stenosis. No spinal canal stenosis. Cervical cord is normal in caliber and signal intensity throughout its course. ===== Procedure Note Andrew Garduno MD - 10/23/2021 EXAMINATION: MRI of the cervical spine EXAM DATE/TIME: 10/22/2021 9:05 AM REASON FOR EXAM: Neck pain, chronic, degenerative changes on xray History of chronic neck pain. No known injury. COMPARISON: No prior cervical MRI. TECHNIQUE: Multiplanar, multisequence imaging of the cervical spine wasobtained without the use of IV contrast agent. FINDINGS: Limited evaluation of posterior fossa contents unremarkable.The visualized posterior sphenoid sinuses are clear. There isstraightening of cervical lordosis. No evidence of acute fracture ordislocation. No destructive osseous lesions. No significantparavertebral soft tissue structural abnormalities. Multileveldegenerative changes are seen. Individual levels as follows: C2-C3: Minimal disc desiccation. No spinal canal or foraminal stenosis oneither side. No disc protrusion. C3-C4: Disc desiccation. No disc protrusion. No spinal canal orforaminal stenosis on either side. C4-C5: Disc desiccation. Minimal diffuse disc bulge. Bilateraluncovertebral hypertrophy slightly more prominent on the right. Far rightand far left posterolateral disc protrusions noted as well. There is nosignificance spinal canal stenosis. There is moderate to severe left andsevere right foraminal stenosis however. C5-C6: Disc desiccation. No spinal canal or foraminal stenosis on eitherside. Minimal uncovertebral hypertrophy. C6-C7: Disc desiccation with diffuse disc bulge. Bilateral uncovertebralhypertrophy slightly more prominent on the left. Far left posterolateraltiny disc protrusion. Moderate left and no right foraminal stenosis. Nospinal canal stenosis. Cervical cord is normal in caliber and signal intensity throughout itscourse. ===== IMPRESSION: ===== 1. No significant spinal canal stenosis at any level. Normal cervicalcord. 2. Most prominent foraminal stenosis is on the right at C4-C5 level ratedas severe. Individual levels as above. 3. Straightening of cervical lordosis may be secondary to muscle spasm orpositioning for the study. Referred By: MONIE BROWN Interpreted By: Andrew Garduno MD, 10/23/2021 8:06 AM Monie Brown ROLL CONTOUR GRINDER MRI Final Resul t * XR CERV SPINE 3V (10/08/2021 10:43 AM CDT) Anatomical Region Laterality Modality Spine Radiographic Lakisha ging 10/08/2021 11:5 6 AM CDT Impressions 10/08/2021 11:58 AM CDT IMPRESSION: Mild degenerative change present at C6-7. Straightening of the normal cervical lordosis. Referred By: Interpreted By: Tomas Cody MD, 10/08/2021 11:56 AM Narrative 10/08/2021 11:58 AM CDT Procedure(s): XR CERV SPINE 3V Date of service: 10/08/2021 10:43 AM Provided clinical information: 46 years, Female, neck pain Procedure and materials: AP, lateral and odontoid Comparison studies: None. Observations: The odontoid is intact. Straightening of the normal cervical lordosis. Loss of height of the disc space is present C6-7 with anterior osteophytes. Prevertebral soft tissues within normal limits. No lytic or sclerotic changes are present involving the cervical spine. Procedure Note Tomas Cody MD - 10/08/2021 Procedure(s): XR CERV SPINE 3V Date of service: 10/08/2021 10:43 AM Provided clinical information: 46 years, Female, neck pain Procedure and materials: AP, lateral and odontoid Comparison studies: None. Observations: The odontoid is intact. Straightening of the normal cervical lordosis.Loss of height of the disc space is present C6-7 with anteriorosteophytes. Prevertebral soft tissues within normal limits. No lytic orsclerotic changes are present involving the cervical spine. IMPRESSION: Mild degenerative change present at C6-7. Straightening of the normalcervical lordosis. Referred By: Interpreted By: Tomas Cody MD, 10/08/2021 11:56 AM Monie Brown NP GENERAL IMAGING Final Resul t * CT ABD+PEL KIDNEY STONE (07/23/2021 8:41 AM CDT) Only the most recent of2 resultswithin the time period is included. Anatomical Region Laterality Modality Abdomen Computed Tomogra phy 07/23/2021 8:21 AM CDT Impressions 07/23/2021 8:25 AM CDT IMPRESSION: ===== 1. No acute abdominal or pelvic abnormalities to explain patient's symptoms. No hydronephrosis or obstructive uropathy. No bowel obstruction. 2. Multiple tiny punctate nonobstructing renal calcifications bilaterally. Referred By: Interpreted By: Andrew Garduno MD, 07/23/2021 8:21 AM Narrative 07/23/2021 8:25 AM CDT EXAMINATION: CT Abdomen and Pelvis without contrast EXAM DATE/TIME: 07/23/2021 8:07 AM REASON FOR EXAM: Left flank pain, kidney stone suspected Left flank pain for weeks. History of stones. Painful urination. No hematuria. COMPARISON: 10/11/2012 CT abdomen and pelvis TECHNIQUE: Axial CT images of the abdomen and pelvis are obtained without the use of IV contrast agent. Subsequent coronal and sagittal reformatted sequences are created for evaluation. A dose lowering technique was used for this procedure, which may include, but is not limited to, dose reduction technique, automated exposure control, iterative reconstruction, ALARA (As Low As Reasonably Achievable), or Image Gently techniques. FINDINGS: Lung bases clear. No pleural effusion. Heart size normal. No pericardial effusion. The liver and spleen are normal in size and surface contour. Layering density in the gallbladder may be sludge. No further CT evidence of acute cholecystitis. Pancreas and adrenal glands unremarkable on this noncontrast study. There is no hydronephrosis or obstructive uropathy on either side. Multiple punctate nonobstructing calcifications in both kidneys. Abdominal aorta normal in caliber throughout. The bowel is normal in caliber throughout. No evidence of bowel obstruction. No free fluid in the pelvis. Bladder contour is unremarkable. Appendix normal. Bone level imaging shows no destructive osseous lesions. ===== Procedure Note Andrew Garduno MD - 07/23/2021 EXAMINATION: CT Abdomen and Pelvis without contrast EXAM DATE/TIME: 07/23/2021 8:07 AM REASON FOR EXAM: Left flank pain, kidney stone suspected Left flank pain for weeks. History of stones. Painful urination. Nohematuria. COMPARISON: 10/11/2012 CT abdomen and pelvis TECHNIQUE: Axial CT images of the abdomen and pelvis are obtained withoutthe use of IV contrast agent. Subsequent coronal and sagittal reformattedsequences are created for evaluation. A dose lowering technique was usedfor this procedure, which may include, but is not limited to, dosereduction technique, automated exposure control, iterative reconstruction,ALARA (As Low As Reasonably Achievable), or Image Gently techniques. FINDINGS: Lung bases clear. No pleural effusion. Heart size normal. Nopericardial effusion. The liver and spleen are normal in size and surface contour. Layeringdensity in the gallbladder may be sludge. No further CT evidence of acutecholecystitis. Pancreas and adrenal glands unremarkable on thisnoncontrast study. There is no hydronephrosis or obstructive uropathy oneither side. Multiple punctate nonobstructing calcifications in bothkidneys. Abdominal aorta normal in caliber throughout. The bowel isnormal in caliber throughout. No evidence of bowel obstruction. No freefluid in the pelvis. Bladder contour is unremarkable. Appendix normal.Bone level imaging shows no destructive osseous lesions. ===== IMPRESSION: ===== 1. No acute abdominal or pelvic abnormalities to explain patient'ssymptoms. No hydronephrosis or obstructive uropathy. No bowelobstruction. 2. Multiple tiny punctate nonobstructing renal calcificationsbilaterally. Referred By: Interpreted By: Andrew Garduno MD, 07/23/2021 8:21 AM Steve Rutherford DO CT Final Res ult * CORONAVIRUS (COVID-19) ANTIGEN [RAPID IN HOUSE TEST] (03/18/2021 9:38 PM MANAGER OPERATIONS) CORONAVIRUS ANTIGEN IA NEGATIVE NEGATIVE 03/18/2021 10:03 PM MANAGER OPERATIONS [facility] Comment: NEGATIVE RESULTS DO NOT RULE OUT SARS-COV-2 INFECTION AND SHOULD NOT BE USED THE SOLE BASIS FOR TREATMENT OR PATIENT MANAGEMENT DECISIONS, INCLUDING INFECTION CONTROL DECISIONS. NEGATIVE RESULTS SHOULD BE CONSIDERED IN THE CONTEXT OF A PATIENT'S RECENT EXPOSURES, HISTORY AND THE PRESENCE OF CLINICAL SIGNS AND SYMPTOMS CONSISTENT WITH COVID 19. THIS TEST HAS BEEN AUTHORIZED BY THE FDA UNDER AN EMERGENCY USE AUTHORIZATION (EUA) FOR USE BY AUTHORIZED LABORATORIES. SPECIMEN TYPE NASAL 03/18/2021 9:39 PM MANAGER OPERATIONS [facility] FIRST TEST YES 03/18/2021 9:39 PM MANAGER OPERATIONS [facility] EMPLOYED IN HEALTHCARE NO 03/18/2021 9:39 PM MANAGER OPERATIONS [facility] SYMPTOMATIC DEFINED BY CDC YES 03/18/2021 9:39 PM MANAGER OPERATIONS [facility] DATE OF SYMPTOM ONSET [id number]/18/2021 9:39 PM MANAGER OPERATIONS [facility] HOSPITALIZATION STATUS NO 03/18/2021 9:39 PM MANAGER OPERATIONS [facility] RESIDENT OF [facility] NO 03/18/2021 9:39 PM MANAGER OPERATIONS [facility] NOT 03/18/2021 9:39 PM MANAGER OPERATIONS [facility] Specimen from nose (specimen) NASAL STRUCTURE / Unknown 03/18/2021 9:38 PM MANAGER OPERATIONS us Toy Tavera MD MICROBIOLOGY - GENERAL ORD ERABLES Final Result [facility] [address] [place] [address], [place] [phone] * EKG Reading (01/29/2021 11:03 PM MANAGER OPERATIONS) Only the most recent of3 resultswithin the time period is included. Narrative Andrew Gunderson MD - 01/29/2021 11:03 PM MANAGER OPERATIONS Andrew Gunderson MD 01/30/2021 12:42 AM EKG Reading Date/Time: 01/29/2021 11:03 PM Performed by: Andrew Gunderson MD Authorized by: Andrew Gunderson MD Interpreted by ED physician Comparison: compared with previous ECG from 01/29/2021 Rhythm: sinus rhythm Rate: normal BPM: 75 Comments: Normal sinus rhythm. Heart rate 75. Normal axis normal interval normal QRS nonspecific ST-T wave changes. Compared to EKG earlier today. surveillance system monitor. 2257: Normal sinus rhythm. Heart rate 75. No ectopy us Andrew Gunderson MD [facility] CH[facility] Final Result * CTA CORONARY W SCORING (01/25/2021 2:31 PM MANAGER OPERATIONS) Anatomical Region Laterality Modality Chest Computed Tomogra phy, Radiographic Imaging 01/28/2021 9:33 AM MANAGER OPERATIONS Addenda Addendum by Ursula Durbin MD on 02/04/2021 8:[address] ANGIOGRAM (Cardiology Portion)? Patient Name: Azar Hills?Linda? : 1975? ? DOS: 01/25/2021? Interpreting Plastic Sheets Supervisor: ROSIBEL SHARMA M.D.? Over read by: URSULA DURBIN M.D.? Indication:?Chest pain? History:?45-year-old?female?with?Acid reflux, COPD, Depression, Scarlet fever, Alcohol and tobacco use? PRE-PROCEDURE DATA? Baseline heart rate is 72?beats per minute.? Blood pressure is 132/76?mmHg.? A 20-gauge Heplock was inserted in the right antecubital vein and flushed with 0.9 NACL.? PROCEDURE DATA? Baseline heart rate is?60?beats per minute.? Blood pressure is 117/77?mmHg.? Medication totals:? Metoprolol 0 mg IVP? Nitroglycerin sublingual tab times 2? Isovue contrast total is?80 ml followed by a flush of 0.9 normal saline?50 ml? POST PROCEDURE DATA? Post procedure heart rate is?69?beats per minute.? Blood pressure is 115/69?mmHg.? Patient tolerated procedure well.?? IV access discontinued and band aide dressing applied to site.? TECHNIQUE? Computed tomography was performed along the axial plane with 0.75?mm slice thickness utilizing IV administration of Isovue 370.? FINDINGS? The coronary calcium score is?0.? The left ventricular ejection fraction is?53%.? The quality of the study is excellent.? CARDIAC STRUCTURES? Left Atrium:?Normal.? Left Atrial Appendage:?Normal.?No thrombus. ?Windsock? morphology.? Right Atrium:?Normal.? Right Atrial Appendage:?Normal.? Atrial Septum:?Normal.? Right Ventricle: Normal size.? Left Ventricle:?Normal size.??No?left ventricular hypertrophy.? Aorta: Aortic root?mildly enlarged; 3.3 cm. Ascending aorta is normal.? Pulmonary Artery: Normal size and morphology.? Pulmonary Vein:?4?pulmonary veins visualized.? Right Upper Pulmonary Vein:?19.3 x?12.4?mm.? Right Lower Pulmonary Vein:?14.6?x?13.3?mm.? Left Upper Pulmonary Vein:?17.7?x 12.3?mm.? Left Lower Pulmonary Vein:?14.3?x?10.2?mm.? Pericardium: Normal.? CORONARY ANATOMY? Left Main:?Normal.? Left Anterior Descending:?Normal.? Diagonal 1 normal.? Circumflex Artery: Not dominant, normal. Obtuse marginal 1 is normal. Small LPL.? Right Coronary Artery:?Normal. 1 Conus. 1 RV branch. 1 PDA.? ADDITIONAL NON-CARDIAC STRUCTURES AND LUNGS READ BY RADIOLOGY COLLEAGUES.? IMPRESSION? 1. Coronary calcium score is?0.?? 2. Ejection fraction is?53%.? 3. CAD-RAD score is 0.? 4. Normal coronaries.? Interpreting [employer] Sheets Supervisor: ROSIBEL SHARMA M.D.? Over read by: URSULA DURBIN M.D.? LATOYA/ERIK/osvaldo 01/31/21 Corrected by: Felisha Borrego on 01/31/2021 8:50 AM Ordered By: ROSIBEL SHARMA Interpreted By: Ursula Durbin, 01/31/2021 8:50 AM Impressions 01/28/2021 9:42 AM MANAGER OPERATIONS IMPRESSION: 1. Cardiac findings interpreted by commercial lending vice president. 2. No suspicious mass or consolidation in the visualized lungs. 3. The total calcium score of 0. This examination is not to be considered a substitute for a clinical examination by a physician. Coronary calcium scoring is intended to be a risk assessment test for coronary artery disease, and the results of this examination should be taken into careful consideration by the patient's own physician in the context of other factors such as relevant history, physical examination, and any other indicated investigations. All reference calcium scores contained in this report were generated from Electron Beam Tomography, or an equivalent technology. Please bear this proviso in mind when reviewing this report. Ordered By: ROSIBEL SHARMA Interpreted By: Peewee Sousa MD, 01/28/2021 9:33 AM Narrative 01/28/2021 9:42 AM MANAGER OPERATIONS EXAMINATION: CARDIAC COMPUTED TOMOGRAPHY ANGIOGRAM, ROUTINE CORONARY CTA. LUNG OVER READ. EXAMINATION: CT calcium score DATE: 01/25/2021 HISTORY: 45-year old female precordial chest pain. COMPARISON: CT abdomen/pelvis on 10/01/2012. TECHNIQUE: Multidetector computerized tomography coronary angiogram was obtained using retrospective ECG gating after the administration of 80 mL of Isovue-370 intravenous contrast at 5 mL/sec with 50 mL saline push according to coronary CTA protocol. ECG tube modulation was used to reduce the radiation exposure. A dose lowering technique was used for this procedure, which may include, but is not limited to, dose reduction technique, automated exposure control, the use of iterative reconstruction, and ALARA (As Low As Reasonably Achievable) / Image Gently techniques. Medications: Administered by cardiology service. Vital signs: Recorded by cardiology service. Procedure Complications/Allergic reactions: None. Coronary CT angiogram quality: Determined by cardiology service. FINDINGS: CORONARY ARTERY ANGIOGRAM AND OTHER CARDIAC FINDINGS: Interpreted by commercial lending vice president. AGATSTON SCORE: The total calcium score is 0. EXTRACARDIAC FINDINGS: The visible lungs contain no suspicious lung nodule, mass, consolidation. The visualized thoracic aorta is normal. Visualized pulmonary artery appears normal. Included upper abdomen is unremarkable. No suspicious osteolytic or osteoblastic lesions. Procedure Note Peewee Sousa MD / Ursula Durbin MD - 01/28/2021 EXAMINATION: CARDIAC COMPUTED TOMOGRAPHY ANGIOGRAM, ROUTINE CORONARY CTA.LUNG OVER READ. EXAMINATION: CT calcium score DATE: 01/25/2021 HISTORY: 45-year old female precordial chest pain. COMPARISON: CT abdomen/pelvis on 10/01/2012. TECHNIQUE: Multidetector computerized tomography coronary angiogram wasobtained using retrospective ECG gating after the administration of 80 mLof Isovue-370 intravenous contrast at 5 mL/sec with 50 mL saline pushaccording to coronary CTA protocol. ECG tube modulation was used to reducethe radiation exposure. A dose lowering technique was used for thisprocedure, which may include, but is not limited to, dose reductiontechnique, automated exposure control, the use of iterativereconstruction, and ALARA (As Low As Reasonably Achievable) / Image Gentlytechniques. Medications: Administered by cardiology service. Vital signs: Recorded by cardiology service. Procedure Complications/Allergic reactions: None. Coronary CT angiogram quality: Determined by cardiology service. FINDINGS: CORONARY ARTERY ANGIOGRAM AND OTHER CARDIAC FINDINGS: Interpreted bycardiologist. AGATSTON SCORE: The total calcium score is 0. EXTRACARDIAC FINDINGS: The visible lungs contain no suspicious lung nodule, mass, consolidation.The visualized thoracic aorta is normal. Visualized pulmonary arteryappears normal. Included upper abdomen is unremarkable. No suspiciousosteolytic or osteoblastic lesions. IMPRESSION: 1. Cardiac findings interpreted by commercial lending vice president. 2. No suspicious mass or consolidation in the visualized lungs. 3. The total calcium score of 0. This examination is not to be considered a substitute for a clinicalexamination by a physician. Coronary calcium scoring is intended to be arisk assessment test for coronary artery disease, and the results of thisexamination should be taken into careful consideration by the patient'sown physician in the context of other factors such as relevant history,physical examination, and any other indicated investigations. Allreference calcium scores contained in this report were generated fromElectron Beam Tomography, or an equivalent technology. Please bear thisproviso in mind when reviewing this report. Ordered By: ROSIBEL SHARMA Interpreted By: Peewee Sousa MD, 01/28/2021 9:33 AM Rosibel Sharma MD CT Edited Resu lt - Final * CREATININE WHOLE BLOOD (01/25/2021 2:06 PM MANAGER OPERATIONS) CREATININE WHOLE BLOOD 0.9 0.60 - 1.10 mg/dL 01/25/2021 2:11 PM MANAGER OPERATIONS [facility] 01/25/2021 2:06 PM MANAGER OPERATIONS Rosibel Sharma MD LABORATORY Final Resul t [facility] [address] [place] [address], [place] [phone] * Holter Monitor 48 Hr (12/14/2020 1:31 PM CDT) 12/14/2020 1:31 PM CDT Narrative [facility] RAD - 12/21/2020 3:[address] [facility]: 2020-12-14 Pat Name: AZAR LAMA Department: Room: Gender: Female Rotary Drill Operator: : 1975 Requested By: ROSIO AMAYA Order Number: [id number] Reading : Kali Harrison Interpretive Statements ORDER #: [id number] ATTENDING PHYSICIAN: Kali Harrison This is an outpatient Holter monitor. Holter done for R00.2^Palpitations^ICD-10-CM. Patient wore the Holter for 48 hours. Patient diary returned: ( )Yes (xx )No Symptoms noted: ( )Yes ( )No Minimum heart rate: 49 Maximum heart rate: 137 Average heart rate: 80 Longest pause: 1.5 seconds PVC's: 2738, about 1% of total heart beats. No runs PAC's: 150, no significant runs No clear arrhythmias CONCLUSIONS: 1. No significant arrhythmias, pauses, ectopy. 2. No diary returned, so unclear if palpitations Procedure Note Kali Harrison MD - 12/21/2020 [facility] Date: 2020-12-14 Pat Name: AZAR LAMA Department: Room: Gender: Female Rotary Drill Operator: : 1975 Requested By: ROSIO AMAYA Order Number: [id number] Josh SCHILLING: Kali Harrison Interpretive Statements ORDER #: [id number] ATTENDING PHYSICIAN: Kali Harrison This is an outpatient Holter monitor. Holter done for R00.2^Palpitations^ICD-10-CM. Patient wore the Holter for 48 hours. Patient diary returned: ( )Yes (xx )No Symptoms noted: ( )Yes ( )No Minimum heart rate: 49 Maximum heart rate: 137 Average heart rate: 80 Longest pause: 1.5 seconds PVC's: 2738, about 1% of total heart beats. No runs PAC's: 150, no significant runs No clear arrhythmias CONCLUSIONS: 1. No significant arrhythmias, pauses, ectopy. 2. No diary returned, so unclear if palpitations us Rosio Amaya ROLL CONTOUR GRINDER HOLTER Final Resul t Performing Organization Address City/[facility]/ZIP Co de Phone Number [facility] ([facility]) RAD * TSH W/REFLEX (10/26/2020 11:05 AM CDT) Only the most recent of6 resultswithin the time period is included. TSH 1.483 0.358 - 3.74 uIU/ML 10/26/2020 1:48 PM CDT [facility] Comment: HIGH DOSES OF BIOTIN MAY INTERFERE WITH THIS TEST RESULT. CORRELATION TO CLINICAL HISTORY AND PRESENTATION RECOMMENDED. FREE T4 NOT INDICATED 10/26/2020 11:0 5 AM CDT us Monie Olguin CLERICAL RECEPTIONIST LABORATORY Final Resu lt Performing Organization Address City/[facility]/ZIP Co de Phone Number [facility] [address] [place] [address], * (ABNORMAL) HEALTH FAIR WITH LIPID (06/21/2020 11:57 AM CDT) WBC 8.7 4.4 - 11.0 x10'3/uL 06/21/2020 11:57 AM CDT [facility] RBC 4.77 4.50 - 5.10 x10'6/uL 06/21/2020 11:57 AM CDT [facility] HGB 15.3 12.3 - 15.3 G/DL 06/21/2020 11:57 AM CDT [facility] HCT 45.9(H) 35.9 - 44.6 % 06/21/2020 11:57 AM CDT [facility] MCV 96.2(H) 80.0 - 96.0 FL 06/21/2020 11:57 AM CDT [facility] MCH 32.1(H) 25.3 - 30.9 PG 06/21/2020 11:57 AM T [facility] MCHC 33.3 31.0 - 34.1 G/DL 06/21/2020 11:57 AM T [facility] RDW 12.3(L) 12.4 - 15.1 % 06/21/2020 11:57 AM T [facility] PLT 246 151 - 353 x10'3/uL 06/21/2020 11:57 AM T [facility] MPV 10.9 9.6 - 12.0 FL 06/21/2020 11:57 AM T [facility] RBC MORPHOLOGY NORMAL 06/21/2020 11:57 AM T [facility] PLT MORPH. NORMAL 06/21/2020 11:57 AM T [facility] WBC MORPHOLOGY NORMAL 06/21/2020 11:57 AM [facility] LYMPHOCYTES % 23.5 15.8 - 45.0 % 06/21/2020 11:58 AM T [facility] NEUTROPHILS % 63.5 42.1 - 71.9 % 06/21/2020 11:58 AM T [facility] MONOCYTES % 9.8 5.7 - 12.5 % 06/21/2020 11:58 AM T [facility] EOSINOPHILS 2.3 0.0 - 5.6 % 06/21/2020 11:58 AM T [facility] BASOPHILS 0.6 0.0 - 1.3 % 06/21/2020 11:58 AM CDT [facility] ABS. NEUTROPHILS TOTAL 5.49 1.40 - 6.00 x10'3/uL 06/21/2020 11:58 AM [facility] IMMATURE GRANS % 0.3 0.0 - 0.5 % 06/21/2020 11:58 AM [facility] ABS. LYMPHOCYTES 2.03 0.80 - 4.70 x10'3/uL 06/21/2020 11:58 AM [facility] GLUCOSE 100(H) 70 - 99 MG/DL 06/22/2020 6:05 AM [facility] BUN 19(H) 7 - 18 MG/DL 06/22/2020 6:05 AM [facility] CREATININE S/P/B 0.81 0.55 - 1.02 MG/DL 06/22/2020 6:05 AM [facility] SODIUM S/P/B 141 136 - 145 MMOL/L 06/22/2020 6:05 AM [facility] POTASSIUM S/P/B 4.3 3.5 - 5.1 MMOL/L 06/22/2020 6:05 AM [facility] CHLORIDE S/P/B 104 100 - 108 MMOL/L 06/22/2020 6:05 AM [facility] CO2 28.4 21 - 32 MMOL/L 06/22/2020 6:05 AM [facility] CALCIUM S/P/B 8.9 8.5 - 10.1 MG/DL 06/22/2020 6:05 AM [facility] BILIRUBIN TOTAL S/P/B 0.2 0.2 - 1.2 MG/DL 06/22/2020 6:05 AM [facility] TOTAL PROTEIN S/P/B 7.2 6.4 - 8.2 G/DL 06/22/2020 6:05 AM [facility] ALBUMIN S/P/B 4.0 3.4 - 5.0 G/DL 06/22/2020 6:05 AM [facility] AST 21 15 - 37 U/L 06/22/2020 6:05 AM [facility] ALT 33 14 - 55 U/L 06/22/2020 6:05 AM [facility] ALKALINE PHOSPHATASE S/P/B 98 50 - 136 U/L 06/22/2020 6:05 AM [facility] ANION GAP 8.6 5 - 15 MMOL/L 06/22/2020 6:05 AM [facility] BUN CREATININE RATIO 23.5 6 - 26 06/22/2020 6:05 AM [facility] A/G RATIO 1.2 1.0 - 2.0 RATIO 06/22/2020 6:05 AM [facility] EGFR NON-AFR. AMER. 88(L) >90 ML/MIN/1. 73 M2 06/22/2020 6:05 AM [facility] EGFR AFR. AMER. >90 >90 ML/MIN/1. 73 M2 06/22/2020 6:05 AM [facility] Comment: NOTE: eGFR is not calculated for patients <18 years of age. This is an estimated GFR (CKD EPI) and should not be used for calculating drug doses. TSH 1.928 0.358 - 3.74 uIU/ML 06/22/2020 6:05 AM [facility] Comment: HIGH DOSES OF BIOTIN MAY INTERFERE WITH THIS TEST RESULT. CORRELATION TO CLINICAL HISTORY AND PRESENTATION RECOMMENDED. CHOLESTEROL 165 <200.0 MG/DL 06/22/2020 6:05 AM [facility] TRIGLYCERIDES 63 <150 MG/DL 06/22/2020 6:05 AM CDT [facility] HDL 62 >40.0 MG/DL 06/22/2020 6:05 AM T [facility] LDL (CALCULATED) 90 <100 MG/DL 06/22/2020 6:05 AM T [facility] NON HDL CHOLESTEROL 103 <130 MG/DL 06/22/2020 6:05 AM T [facility] CHOL/HDL RATIO 2.7 0.0 - 4.5 06/22/2020 6:05 AM T [facility] VLDL CALCULATION 13 5 - 55 MG/DL 06/22/2020 6:05 AM T [facility] LIPID INTERPRETATION 06/22/2020 6:05 AM T [facility] Comment: [facility] REPORT RECOMMENDATIONS: ADULT CHILD LOW RISK: CHOLESTEROL <200 <170 TRIGLYCERIDE <150 --- HDL >=60 --- LDL <100 <110 BORDERLINE: CHOLESTEROL 200-239 170-199 TRIGLYCERIDE 150-199 --- HDL 40-59 --- LDL 100-159 110-129 HIGH RISK: CHOLESTEROL >=240 >=200 TRIGLYCERIDE >=200 --- HDL <40 --- LDL >=160 >=130 06/21/2020 11:5 7 AM CDT us Cande Luna MD LABORATORY Final Re sult [facility] [address] [place] [address], * PRO-BRAIN NATRIURETIC PEPTIDE (05/19/2019 11:30 PM CDT) PRO-B TYPE NATRIURETIC PEPTIDE 41 <125 PG/ML 05/20/2019 12:05 AM CDT [facility] Comment: CUT POINTS ESTABLISHED BY [employer] ON NT PROBNP (ICON) STUDY (2006). AGE INDEPENDENT: <300 PG/ML HAS A 99% NEGATIVE PREDICTIVE VALUE FOR EXCLUDING ACUTE CHF <50 YEARS: >450 PG/ML IS CONSISTENT WITH ACUTE CHF 50-75 YEARS: >900 PG/ML IS CONSISTENT WITH ACUTE CHF >75 YEARS: >1800 PG/ML IS CONSISTENT WITH ACUTE CHF IN PATIENTS WITH RENAL INSUFFICIENCY (GFR <60), >1200 PG/ML YIELDS A DIAGNOSTIC SENSITIVITY AND SPECIFICITY OF 89% AND 72% FOR ACUTE CHF. 05/19/2019 11:3 0 PM CDT us Lotus Helton MD LABORATORY Final Resul t [facility] [address] [place] [address], * TISSUE EXAM BY PATHOLOGIST (12/04/2017 11:50 AM CDT) COPATH REPORT SURG - Surgical Pathology Report Patient Name: AZAR LAMA Med. Rec. #:[id number] : 1975 (Age: 42) Gender: F Physician(s): Kimani Choi Location: [facility] Room Number: Billing #: [id number]\ \ Copy To: Ruy Taylor Collected: 12/04/2017 Received: 12/04/2017 Reported: 12/08/2017 Specimen(s) A: Gastric, Biopsies B: Distal Esophageal Biopsies C: Maco Colon Biopsies D: Biopsies of Rectal Polypys x5 Final Pathologic Diagnosis A. GASTRIC, BIOPSY: MINIMAL CHRONIC GASTRITIS IMMUNOHISTOCHEMICAL STAIN FOR H. PYLORI IS NEGATIVE B. DISTAL ESOPHAGUS, BIOPSIES: MILD ESOPHAGITIS WITH RATE EOSINOPHILS SUGGESTIVE OF REFLUX NEGATIVE FOR INTESTINAL METAPLASIA (DEEPER LEVELS ARE EXAMINED) C. COLON, RANDOM, BIOPSIES: FRAGMENTS OF LARGE BOWEL MUCOSA WITH NO SIGNIFICANT HISTOLOGIC ABNORMALITIES NO EVIDENCE OF MICROSCOPIC COLITIS D. RECTAL POLYPS, BIOPSY: FRAGMENTS OF HYPERPLASTIC POLYPS /12/07/2017 Electronically Signed Out BySabine Miramontes Microscopic Description A. The biopsy of the stomach shows fragments of gastric mucosa with minimal chronic inflammation. Immunohistochemical stain for H pylori is negative. The control slides stain appropriately. B. The biopsy of the distal esophagus shows a single fragment of squamous epithelium with rare intraepithelial eosinophils (one eosinophil in high power field). No columnar mucosa or intestinal metaplasia is seen. Deeper levels are examined. C. The biopsy of the random colon shows fragments of large bowel mucosa with no significant histologic abnormalities. No significant increase in intraepithelial lymphocytes is seen. D. The biopsy of the rectal polyp shows fragments of hyperplastic polyp. This case was signed out at [facility], [address] [place] [address]. Clinical History Acid reflux, history of colon polyps. Gross Description The specimen is received in four parts. All are received in formalin filled containers with the patient's name and date. The first part is labeled as gastric biopsies . The specimen consists of two pink/parham biopsies measuring approximately 3 to 4 mm in size. They are both submitted in one cassette labeled A . The next part the specimen is labeled as distal esophageal biopsies . The specimen consists of one pink/parham 1 mm biopsy which is submitted in one cassette labeled B . Please make note the container and paper work both say biopsies but there is only one biopsy in the container. The third part the specimen is labeled as random colon biopsies . The specimen consists of multiple pink/parham biopsies ranging in size from less than 0.5 mm on up to 3 mm. They are all submitted in one cassette labeled C . The fourth part the specimen is labeled as biopsies rectal polyps x 5 . The specimen consists of four pink/parham biopsies measuring 2 to 3 mm in size. They are all submitted in one cassette labeled D . /gm These tests were developed and the performance characteristics determined by [place], [place] and/or [facility]. They have not been cleared or approved by the US Food and Drug Administration (FDA). The FDA has determined that such clearance or approval is not necessary. These tests are used for clinical purposes. Prognostic and predictive testing should be interpreted in the context of additional clinical and/or histopathological findings. ms//12/04/2017 Billing Fee Code(s): 61824(4), 31597 [facility] CONVERSION 12/04/2017 11:5 0 AM CDT 12/04/2017 11:50 AM CDT Narrative [facility] TO EP[facility] CONVERSION - 12/04/2017 11:50 AM CDT Result Communication: No patient communication needed at this time Kimani Choi MD PATHOLOGY/CYTOLOGY ORDERABLES Final Result Performing Organization Address [facility] Co de Phone Number [facility] TO EP[facility] CONVERSION * Colonoscopy (12/04/2017 12:00 AM CDT) 12/04/2017 12/04/2017 Narrative [facility] CONVERSION - 12/04/2017 12:00 AM CDT Documented hx of procedure Procedure Note Cinthia Schilling MD - 12/27/2017 Documented hx of procedure Generic Fernando Schilling MD GI PROCEDURE ORDERABLES Final Result Performing Organization Address [facility] Co de Phone Number [facility] CONVERSION * PTH - INTACT PANEL (PTH,PHOS,CA) (08/28/2017 10:24 AM CDT) CREATININE S/P/B 0.76 0.55 - 1.02 MG/DL 09/01/2017 3:56 AM CDT [facility] CALCIUM S/P/B 9.2 8.5 - 10.1 MG/DL 08/29/2017 3:53 AM CDT [facility] Comment: INTERPRETIVE GUIDELINES INTACT PTH CALCIUMNORMAL: NORMAL NORMALHYPOPARATHYROIDISM: LOW LOWHYPERPARATHYROIDISM PRIMARY: HIGH HIGH SECONDARY: HIGH LOW OR NORMAL PHOSPHORUS 3.9 2.5 - 4.9 mg/dL 08/29/2017 3:53 AM CDT [facility] PTH INTACT 26.9 18.4 - 80.1 PG/ML 08/28/2017 3:16 PM CDT [facility] 08/28/2017 10:2 4 AM CDT 08/28/2017 10:29 AM CDT Generic Conversion Md [facility] Final R esult Performing Organization Address [facility] Co de Phone Number [facility] [address] [place] [address], * (ABNORMAL) STONE RISK DIAGNOSTIC PROFILE (08/28/2017 10:24 AM CDT) Only the most recent of2 resultswithin the time period is included. U PH 6.4 5.5 - 7.0 09/02/2017 11:19 AM CDT [facility] VOLUME (U) 1.30(L) >2.00 L/day 09/02/2017 11:19 AM CDT [facility] CALCIUM (U) 157 <250 mg/day 09/02/2017 11:19 AM CDT [facility] URINE OXALATE (STONE RISK) 25 <45 mg/day 09/02/2017 11:19 AM CDT [facility] URIC RANDOM (U) 373 <700 mg/day 09/02/2017 11:19 AM CDT [facility] CITRATE 216(L) >320 mg/day 09/02/2017 11:19 AM CDT [facility] NA RANDOM (U) 100 <200 mEq/day 09/02/2017 11:19 AM CDT [facility] URINE SULFATE (STONE RISK) 7 <30 mmol/day 09/02/2017 11:19 AM CDT [facility] PHOS RANDOM (U) 734 <1,100 mg/day 09/02/2017 11:19 AM CDT [facility] MG RANDOM (U) 68 >60 mg/day 09/02/2017 11:19 AM CDT [facility] URINE AMMONIUM (STONE RISK) 18 14 - 62 mEq/day 09/02/2017 11:19 AM CDT [facility] POTASSIUM (U) 26 19 - 135 mEq/day 09/02/2017 11:19 AM CDT [facility] CREATININE (URINE) GM/DL 1,039 600 - 1,800 mg/day 09/02/2017 11:19 AM CDT [facility] CA OXALATE CRYSTALS 2.12(H) <2.00 09/02 11:19 AM CDT [facility] [place] URINE BRUSHITE (STONE RISK) 3.24(H) <2.00 09/02/2017 11:19 AM CDT [facility] [place] URINE SODIUM URATE (STONE RISK) 1.78 <2.00 09/02/2017 11:19 AM CDT [facility] [place] TRIPLE PHOSPHATE CRYSTALS 1.85 <75.00 09/02/2017 11:19 AM CDT [facility] [place] URIC ACID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 08/04/2023 Diarrhea, unspecified type 09/24/2023 Abdominal pain, unspecified abdominal location 09/24/2023 Gastroesophageal reflux disease, unspecified whether esophagitis present 09/24/2023 Chronic heartburn Heartburn 09/24/2023 Diarrhea, unspecified type 10/02/2023 Abdominal pain, unspecified abdominal location 10/02/2023 Gastroesophageal reflux disease, unspecified whether esophagitis present 10/02/2023 Chronic heartburn Heartburn 10/02/2023 Diarrhea, unspecified type 10/02/2023 Abdominal pain, unspecified abdominal location 10/02/2023 Gastroesophageal reflux disease, unspecified whether esophagitis present 10/02/2023 Chronic heartburn Heartburn 10/02/2023 Diarrhea, unspecified type 11/03/2023 Abdominal pain, unspecified abdominal location 11/03/2023 Gastroesophageal reflux disease, unspecified whether esophagitis present 11/03/2023 Chronic heartburn Heartburn 11/03/2023 Diarrhea, unspecified type 11/03/2023 Abdominal pain, unspecified abdominal location 11/03/2023 Gastroesophageal reflux disease, unspecified whether esophagitis present 11/03/2023 Chronic heartburn Heartburn 11/03/2023 Encounter for screening mammogram for malignant neoplasm of breast Other screening mammogram 12/16/2023 Acute cough 12/16/2023 Neck pain Cervicalgia 12/16/2023 Acute cough 12/16/2023 Encounter for screening mammogram for malignant neoplasm of breast Other screening mammogram 01/15/2024 Bronchitis Bronchitis, not specified as acute or chronic 03/25/2024 COPD with acute exacerbation ([facility]) Obstructive chronic bronchitis with exacerbation 03/25/2024 Primary hypertension Unspecified essential hypertension 04/27/2024 Depression with anxiety Dysthymic disorder 04/27/2024 Positive colorectal cancer screening using Cologuard test 01/08/2022 Heartburn 01/08/2022 Gastroesophageal reflux Esophageal reflux 01/08/2022 Gastroesophageal reflux Esophageal reflux 11/03/2023 Diarrhea, unspecified type 11/03/2023 Abdominal pain, unspecified abdominal location 11/03/2023 Chronic heartburn Heartburn 11/03/2023 Care Teams Administrative Receptionist Relationship Specialty Start Date End Date Analisa Sandhu MD [address] [place] [id number] PCP - General FAMILY PRACTICE 04/28/22
--- OUTSIDE RECORDS SUMMARY | 2024-06-03 08:13 | XMS_ITS | Encounter Summary ---
Author Organization [facility] Address [facility] [place] [address] Care Team Providers Care Coordinating Producer Name Role Phone Kemal Siegel MD Primary Care Provider + Encounter Details Date Type Department Care Team (Late st Contact Info) Description 08/20/2022 MyChart Message Enc [facility] [address] [place] [phone] Mychart, [facility] Provider Air Quality Message Social History Tobacco Use Types Packs/Day Years [...] Date Recorded Patient Health Questionnaire-2 Score 0 07/01/2022 Comments No Sex and Gender Information Value [...] Last Indicated Resolved Time COVID-19 Rule Out 05/05/2023 05/05/2023 05/06/2023 12:10 AM CDT Influenza - Seasonal 05/05/2023 05/05/2023 024 12:32 AM CDT COVID-19 Rule Out 03/25/2024 03/25/2024 03/25/2024 10:55 AM PROGRAMMING SPECIALIST Assessment Noted Time PHQ-9 Depression Total Score: 14 023 12:41 PM PROGRAMMING SPECIALIST documented as of this encounter Care Teams Coordinating Producer Relationship Specialty Start Date End Date Kemal Siegel MD [address] [phone] PCP - General FAMILY PRACTICE 04/28/22 documented as of this encounter
--- OUTSIDE RECORDS SUMMARY | 2024-06-03 08:13 | XMS_ITS | Encounter Summary ---
Author Organization [facility] Address [address] [place] [id number] Care Team Providers Care Respiratory Care Specialist Name Role Phone Kemal Siegel MD Primary Care Provider + Encounter Details Date Type Department Care Team (Late st Contact Info) Description 12/17/2023 [employer] Message [address] [phone] [facility] Provider results Social History Tobacco Use Types [...] Rule Out 03/25/2024 03/25/2024 03/25/2024 10:55 AM COLLIERY CLERK Assessment Noted Time PHQ-9 Depression Total Score: 14 023 12:41 PM COLLIERY CLERK documented as of this encounter Care Teams Respiratory Care Specialist Relationship Specialty Start Date End Date Kemal Siegel MD [address] [facility] [address] [place] [address] PCP - General FAMILY PRACTICE 04/28/22 documented as of this encounter
--- OUTSIDE RECORDS SUMMARY | 2024-06-03 08:13 | XMS_ITS | Encounter Summary ---
Author Organization [facility] Address [address] [place] [address] Care Team Providers Care Director Of Hotel Name Role Phone Kemal Siegel MD Primary Care Provider + Encounter Details Date Type Department Care Team (Late st Contact Info) Description 08/11/2023 [employer] Message [facility] [employer] [address] [facility] [place] [address] [employer], [facility] Provider Proxy request for [place] Social History Tobacco Use Types Packs/Day Years [...] Rule Out 03/25/2024 03/25/2024 03/25/2024 10:55 AM CUSTOMER SERVICE ATTENDANT Assessment Noted Time PHQ-9 Depression Total Score: 14 023 12:41 PM CUSTOMER SERVICE ATTENDANT documented as of this encounter Care Teams Director Of Hotel Relationship Specialty Start Date End Date Kemal Siegel MD [id number] [phone] PCP - General FAMILY PRACTICE 04/28/22 documented as of this encounter
--- OUTSIDE RECORDS SUMMARY | 2024-06-03 08:13 | XMS_ITS | Encounter Summary ---
Author Organization [facility] Address [address] [place] [id number] Care Team Providers Care Vegetable Picker Name Role Phone Kemal Siegel MD Primary Care Provider + Encounter Details Date Type Department Care Team (Late st Contact Info) Description 04/21/2023 [employer] Message [address] [phone] [facility] Provider results Social History Tobacco Use [...] Date Recorded Patient Health Questionnaire-2 Score 0 04/20/2023 Comments No Sex and Gender Information Value [...] Rule Out 03/25/2024 03/25/2024 03/25/2024 10:55 AM CHEMICAL PACKAGER Assessment Noted Time PHQ-9 Depression Total Score: 14 023 12:41 PM CHEMICAL PACKAGER documented as of this encounter Care Teams Vegetable Picker Relationship Specialty Start Date End Date Kemal Siegel MD [id number] [phone] PCP - General FAMILY PRACTICE 04/28/22 documented as of this encounter
--- OUTSIDE RECORDS SUMMARY | 2024-06-03 08:13 | XMS_ITS | Encounter Summary ---
Author Organization [facility] Address [address] [place] [id number] Care Team Providers Care Literacy Specialist Name Role Phone Zelalem Retana MD Primary Care Provider U Monie Hu NP Primary Care Provider [phone] [facility] Primary Care Provid er Kemal Siegel MD Primary Care Provider + Encounter Details Date Type Department Care Team (Late st Contact Info) Description 02/05/2021 [facility] [employer] Message [facility] [address] [address] Sylvie, [facility] Provider Results Social History Tobacco Use Types Packs/Day Years Used Date Smoking Tobacco: Every Day Cigarettes 0.5 37.3 Started: 1987 Smokeless Tobacco: Never Comments:ready to cut back a nd trying the nicotine patch Alcohol Use Standard Drinks/Week Comments Not Currently 0 (1 standard drink = 0.6 oz pur e alcohol) AUDIT-C Answer Date Recorded Q1: How often do you have a drink containing alcohol? 4 or more times a week 10/27/2019 Average Number of Drinks Not on file 020 Frequency of Binge Drinking Not on file 04/2019 PHQ-2 Answer Date Recorded PHQ-2 Score - If the patient scores above 3, please move on to questions 3-9 1 11/16/2020 Comments No Sex and Gender Information Value Date Recorded Sex Assigned at Female 12/14/2020 11:54 AM CDT Legal Sex Female 7:08 PM CDT Gender Identity Female 12/14/2020 11:54 AM CDT Sexual Orientation Straight 12/14/2020 11 :54 AM CDT COVID-19 Exposure Response Date Recorded In the last month, have you been in contact with someone who was confirmed or suspected to have Coronavirus / COVID-19? No / Unsure 01/29/2021 8:53 PM SHIRT MARKER documented as of this encounter Plan of Treatment Not on file documented as of this encounter Visit Diagnoses Not on filedocumented in this encounter Additional Health Concerns Infection Onset Date Last Indicated Resolved Time COVID-19 Rule Out 03/18/2021 03/18/2021 03/18/2021 10:04 PM SHIRT MARKER COVID-19 Rule Out 05/05/2023 05/05/2023 05/06/2023 12:10 AM CDT Influenza - Seasonal 05/05/2023 05/05/2023 024 12:32 AM CDT COVID-19 Rule Out 03/25/2024 03/25/2024 03/25/2024 10:55 AM SHIRT MARKER Assessment Noted Time PHQ-9 Depression Total Score: 1 11/17/19 21 11:24 AM CDT documented as of this encounter Care Teams Literacy Specialist Relationship Specialty Start Date End Date Zelalem Retana MD PCP - General INTERNAL MEDICINE 11/30/20 09/29/21 Monie Escalera NP [address] [place] [address] PCP - General NURSE PRACTITIONER 09/30/21 04/22/22 Lauren Sterans FNP- [address] [place] [address] PCP - General Nurse Practitioner Family 04/23/2204/27 Kemal Siegel MD [address] [place] [id number] PCP - General FAMILY PRACTICE 04/28/22 documented as of this encounter
--- OUTSIDE RECORDS SUMMARY | 2024-06-03 08:13 | XMS_ITS | Encounter Summary ---
Author Organization [facility] Address [address] [place] [address] Care Team Providers Care Time Study Engineer Name Role Phone Kemal Siegel MD Primary Care Provider + Encounter Details Date Type Department Care Team (Late st Contact Info) Description 02/13/2023 [employer] Message [address] [phone] Sylvie, [facility] Provider FMLA forms Social History Tobacco Use Types Packs/Day Years [...] Date Recorded Patient Health Questionnaire-2 Score 0 02/11/2023 Comments No Sex and Gender Information Value [...] Rule Out 03/25/2024 03/25/2024 03/25/2024 10:55 AM COMMUNITY HEALTH NURSE SUPERVISOR Assessment Noted Time PHQ-9 Depression Total Score: 14 023 12:41 PM COMMUNITY HEALTH NURSE SUPERVISOR documented as of this encounter Care Teams Time Study Engineer Relationship Specialty Start Date End Date Kemal Siegel MD [address] [phone] PCP - General FAMILY PRACTICE 04/28/22 documented as of this encounter
--- OUTSIDE RECORDS SUMMARY | 2024-06-03 08:13 | XMS_ITS | Encounter Summary ---
Author Organization [facility] Address [address] [place] [address] Care Team Providers Care Reshipping Clerk Name Role Phone Kemal Siegel MD Primary Care Provider + Encounter Details Date Type Department Care Team (Late st Contact Info) Description 02/12/2023 [employer] Message [address] [phone] [facility] Provider results Social History Tobacco Use [...] Rule Out 03/25/2024 03/25/2024 03/25/2024 10:55 AM PEDIATRIC SOCIAL WORKER Assessment Noted Time PHQ-9 Depression Total Score: 14 023 12:41 PM PEDIATRIC SOCIAL WORKER documented as of this encounter Care Teams Reshipping Clerk Relationship Specialty Start Date End Date Kemal Siegel MD [address] [phone] PCP - General FAMILY PRACTICE 04/28/22 documented as of this encounter
[2024-06-03 08:16] VITALS: BP 185/96; PULSE 85; RESP 18; TEMP 36.5; O2SAT 100
--- NOTE | 2024-06-03 08:21 | ED.EAR ---
HPI - Ear Problem General Chief complaint: Ear Stated complaint: face pain and ear pain (right side) Time Seen by Provider: 06/03/24 08:21 Source: patient Mode of arrival: ambulatory Limitations: no limitations History of Present Illness HPI Narrative: 49-year-old female presents with complaint pain to right ear since 2:00 a.m.. Patient reports that she has had sinus congestion and pressure for the past 4-5 days. Taking [id number] Claritin. Purchased lidocaine ear drops yesterday and began using them to right ear. Afebrile. All systems reviewed and negative except as noted above. Related Data Home Medications ?Medication ?Instructions ?Recorded ?Confirmed ?Last Taken ?Type bupropion HCl 150 mg tablet,12 hr 150 mg PO BID 10/21/21 01/28/22 Unknown History sustained-release sertraline 100 mg tablet 100 mg DAILY 10/21/21 01/28/22 Unknown History lisinopril 10 mg tablet mg 06/03/24 Unknown History Allergies Allergy/AdvReac Type Severity Reaction Status Date / Time dextromethorphan (From Allergy Severe Swelling Verified 06/03/24 08:16 Mucinex DM) of Lip/Tongue/Throat guaifenesin (From Mucinex DM) Allergy Severe Swelling Verified 06/03/24 08:16 of Lip/Tongue/Throat codeine AdvReac Intermediate VOMITING Verified 06/03/24 08:16 Review of Systems Review of Systems: CONSTITUTIONAL: Denies fever, chills, or sweats. EYES: Denies visual changes, redness, or discharge. ENT: Reports rhinorrhea, congestion, sinus pressure postnasal drainage. Denies sore throat reports right ear pain. CARDIOVASCULAR: Denies chest pain, palpitations, or edema. RESPIRATORY: Denies cough or dyspnea. GASTROINTESTINAL: Denies abdominal pain, nausea, vomiting, or diarrhea. GENITOURINARY: Denies dysuria or hematuria. SKIN: Denies rash or itching. MUSCULOSKELETAL: Denies back pain, joint pain, or myalgia. NEUROLOGIC: Denies headache, numbness, or weakness. PSYCHIATRIC: Denies anxiety or depression. All other systems reviewed are negative, except as documented in HPI. PMFSH Comments At time of signature, agree with nursing past medical, surgical, social and family history. There is no relevant family history pertinent to the presenting complaint. Exam Narrative: GENERAL: This is a well-nourished, well-developed patient, in no apparent distress. HEAD: normocephalic, atraumatic. EYES: PERRL. Sclera clear/white. Vision is grossly intact. EARS: External ears normal, Left TM and ear canal. Blood to right ear canal. possible perforation, difficult to assess due to pooling and bubbling or ear drops that were placed by pt. Hearing grossly intact. NOSE: External nose normal with Purulent nasal drainage, erythema and swelling to bilateral nares THROAT: Mucous membranes moist, erythema postnasal drainage NECK: Neck supple, non-tender without lymphadenopathy, masses or thyromegaly. CARDIOVASCULAR: Regular rate and rhythm without murmurs, gallops, or rubs. RESPIRATORY: Clear to auscultation. Breath sounds equal bilaterally. No wheezes, rales, or rhonchi. SKIN: warm, Dry, intact with no suspicious lesions or rash, good texture and turgor. NEURO: awake, alert, and oriented to person, place and time. There were no obvious focal neurologic abnormalities. EXTREMITIES: No joint tenderness, effusion, or edema noted. Course Course Level of Care: Express Care Visit Vital Signs Vital signs: Vital Signs Temperature 36.5 C 06/03/24 08:16 Pulse Rate 85 06/03/24 08:16 Respiratory Rate 18 06/03/24 08:16 Blood Pressure 185/96 H 06/03/24 08:16 Pulse Oximetry 100 06/03/24 08:16 Oxygen Delivery Room Air 06/03/24 08:16 Temperature 36.5 C 06/03/24 08:16 Pulse Rate 85 06/03/24 08:16 Respiratory Rate 18 06/03/24 08:16 Blood Pressure 185/96 H 06/03/24 08:16 Pulse Oximetry 100 06/03/24 08:16 Oxygen Delivery Room Air 06/03/24 08:16 BP 172/90 at discharge. pt has not taken BP med for several days. Medical Decision Making MDM Narrative Medical decision making narrative: Pt's BP elevated today. asymptomatic. recommend she go home and take BP medication that she hasn't taken for several days. possible perforation to R TM. referred to ENT for follow up. Please be advised this is a medical document. It is intended for [id number] communication. It is written in medical language and may contain unfamiliar abbreviations or verbiage. Medical documents are intended to carry relevant information, facts as evident, and the clinical opinion of the practitioner at the time of the encounter. This report may have been done utilizing a voice recognition system. Attempts have been made to correct errors. However, there may be uncorrected grammatical, spelling, and recognition errors present. The file time of this note does not necessarily represent the time of service. Vital Signs Vital Signs: Vital Signs Temperature 36.5 C 06/03/24 08:16 Pulse Rate 85 06/03/24 08:16 Respiratory Rate 18 06/03/24 08:16 Blood Pressure 185/96 H 06/03/24 08:16 Pulse Oximetry 100 06/03/24 08:16 Oxygen Delivery Room Air 06/03/24 08:16 Temperature 36.5 C 06/03/24 08:16 Pulse Rate 85 06/03/24 08:16 Respiratory Rate 18 06/03/24 08:16 Blood Pressure 185/96 H 06/03/24 08:16 Pulse Oximetry 100 06/03/24 08:16 Oxygen Delivery Room Air 06/03/24 08:16 Discharge Plan Discharge Clinical Impression: Right otitis media with spontaneous rupture of eardrum, Acute sinusitis, Hypertension, uncontrolled Patient Disposition: Home Condition: Stable Instructions: Antibiotic Form, Ear Infection (ED) Additional Instructions: take medications as prescribed. Continue taking Claritin daily. Take ibuprofen or Tylenol every 6-8 hours as needed for pain and fever. Your blood pressure was elevated today. Take medication when you get home. Follow-up with research technologist at next available appointment to further evaluate right ear. Patient Language: New Zealander Prescriptions: New methylprednisolone [Medrol (Tavon)] 4 mg tablets,dose pack See Rx Instructions PO .COMPLEX Qty: 21 0RF Rx Instructions: orally per package directions amoxicillin-pot clavulanate 875-125 mg tablet 1 tablet PO Q12H 10 Days Qty: 20 0RF No Action lisinopril 10 mg tablet bupropion HCl 150 mg tablet sustained-release 12 hr 150 mg PO BID sertraline 100 mg tablet 100 mg DAILY albuterol sulfate 90 mcg/actuation HFA aerosol inhaler 2 puff inhalation Q4-6H PRN (Reason: shortness of breath or wheezing) 30 Days Qty: 8.5 0RF Follow-up/Referrals: EDSONANALISA M.D. [Primary Care Provider] - Stand Alone Forms: Work/School Release IP Time of Disposition: 08:29
[2024-06-03 08:27] VITALS: BP 172/90
== END 2024-06-03 08:34 | disposition home or self-care (01) ==
PROVIDERS: Emergency Provider Nurse Practitioner Family; PCP Family Medicine
DX: H66.91 Otitis media, unspecified, right ear (principal); H72.91 Unspecified perforation of tympanic membrane, right ear; J01.90 Acute sinusitis, unspecified; I10 Essential (primary) hypertension; K21.9 Gastro-esophageal reflux disease without esophagitis; F41.9 Anxiety disorder, unspecified; F32.A Depression, unspecified
CPT/HCPCS: 99213; G0463

== ENCOUNTER 2025-02-04 15:41 | Emergency (ER) | payer OTHER, SELFPAY ==
--- OUTSIDE RECORDS SUMMARY | 2025-02-04 15:46 | XMS_ITS | Clinical Summary ---
Author Organization [facility] Address [address] [place] [address] Care Team Providers Care Mechanic'S Assistant Name Role Phone Unavailable Primary Care Provider Unavailabl e Social History Tobacco Use Types Packs/Day Years Used Date Smoking Tobacco: Never Assessed Comments Unknown Sex and Gender Information Value Date Recorded Sex Assigned at Not on file Legal Sex Female 6:55 PM EST Gender Identity Not on file Sexual Orientation Not on file Plan of Treatment Not on file Medical Devices Not on file
[2025-02-04 15:48] VITALS: BP 144/78; PULSE 74; RESP 18; TEMP 36.2; O2SAT 100
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
== END 2025-02-04 16:05 | disposition short-term general hospital (02) ==
PROVIDERS: PCP Family Medicine
DX: S10.93XA Contusion of unspecified part of neck, initial encounter (principal); Y04.8XXA Assault by other bodily force, initial encounter; M79.645 Pain in left finger(s); J44.9 Chronic obstructive pulmonary disease, unspecified
CPT/HCPCS: 99212; G0463